=== PATIENT | female | born 1945 | race Caucasian/White ===

== ENCOUNTER 2020-06-11 20:08 | Inpatient (IN) ==
[2020-06-11] MEDS ORDERED: LACTATED RINGERS 1,000 ML IV ONE (20:20)
--- NOTE | 2020-06-11 20:24 | Emergency Department Note ---
Altered Mental Status HPI General Chief Complaint: Altered Mental Status Stated Complaint: decreased LOC Time Seen by Provider: 06/11/20 20:15 Source: patient Mode of arrival: wheelchair Limitations: no limitations History of Present Illness HPI Narrative: Narrative: This patient comes in from [facility] with fever and decreased level of consciousness. She is barely responsive to painful stimulation. Urine dip here shows large leukocytes and blood on dip. No history of cough or shortness of breath and her O2 sats in the mid 90s on room air. Related Data Home Medications Medication Instructions Recorded Confirmed aspirin [Olman Chewable Aspirin] 81 mg PO DAILY 08/23/16 08/23/16 acetaminophen 1,000 mg PO Q6-12HP PRN 06/11/20 06/11/20 bisacodyl 5 mg PO PRN PRN 06/11/20 06/11/20 bisacodyl 10 mg [place] PRN PRN 06/11/20 06/11/20 cetirizine 5 mg PO QDAY PRN 06/11/20 06/11/20 cholecalciferol (vitamin D3) 1,250 mcg PO DAILY 06/11/20 06/11/20 cyanocobalamin (vitamin B-12) 2,500 mcg PO QDAY 06/11/20 06/11/20 diclofenac sodium 1 % TOPICAL DAILY 06/11/20 06/11/20 donepezil 10 mg PO DAILY 06/11/20 06/11/20 famotidine 20 mg PO DAILY 06/11/20 06/11/20 fenofibrate nanocrystallized 145 mg PO DAILY 06/11/20 06/11/20 insulin glargine 17 unit SUBCUT BID 06/11/20 06/11/20 tramadol 50 mg PO TID PRN 06/11/20 06/11/20 Allergies Allergy/AdvReac Type Severity Reaction Status Date / Time codeine Allergy Unknown Unknown Verified 06/11/20 20:10 lactose Allergy Unknown Unknown Verified 06/11/20 20:12 metformin [From Avandamet] Allergy Unknown Unknown Verified 06/11/20 20:11 niacin Allergy Unknown Unknown Verified 06/11/20 20:10 pioglitazone Allergy Unknown Unknown Verified 06/11/20 20:11 Rosiglitazone Allergy Unknown Unknown Verified 06/11/20 20:11 [From Avandamet] shellfish derived Allergy Unknown Unknown Verified 06/11/20 20:13 atorvastatin [From Lipitor] AdvReac Severe Hives Verified 08/23/16 20:32 celecoxib [From Celebrex] AdvReac Severe Hives Verified 08/23/16 20:32 cephalexin AdvReac Severe Hives Verified 08/23/16 20:32 ciprofloxacin [From Cipro] AdvReac Severe Hives Verified 08/23/16 20:32 doxycycline AdvReac Severe Hives Verified 08/23/16 20:32 lisinopril AdvReac Severe Hives Verified 08/23/16 20:32 potassium AdvReac Severe Hives Verified 08/23/16 20:26 sulfamethoxazole AdvReac Severe Hives Verified 08/23/16 20:33 Paroxetine [From Paxil] AdvReac Intermediate Hives Verified 08/23/16 20:26 Penicillins AdvReac Intermediate Hives Verified 08/23/16 20:26 Sulfa (Sulfonamide AdvReac Intermediate Hives Verified 08/23/16 20:26 Antibiotics) clotrimazole AdvReac Unknown Unknown Verified 06/11/20 20:09 hyclate AdvReac Unknown Unknown Uncoded 08/23/16 20:47 mytussin AdvReac Unknown Unknown Uncoded 08/23/16 20:47 Review of Systems ROS ROS Narrative: Narrative: Limitations: ROS unobtainable due to patients medical condition [facility] Narrative Patient History Narrative: Narrative: Medical/Surgical/Family History All Active Problems (Updated 06/11/20 @ 22:54 by Brody Navas MD) Altered mental status (Acute) Sepsis (Acute) Urinary tract infection (Acute) Fracture of humerus, right, closed (Acute) Medical History (Updated 06/11/20 @ 22:54 by Brody Navas MD) Diabetes (Acute) Fracture of humerus, right, closed (Acute) GERD (gastroesophageal reflux disease) (Acute) Hypertension (Acute) Social History Smoking Status: Current every day smoker Exam Narrative Narrative: Narrative: General Limitations: no limitations Head Head: Present atraumatic, normocephalic and normal inspection ENT ENT: Present mucous membranes dry Chest Chest: Present normal inspection and symmetric chest wall rise Respiratory Respiratory: Present normal lung sounds bilaterally; Absent respiratory distress, rales/crackles and wheezes Cardiovascular Cardiovascular: Present regular rate, normal rhythm and normal heart sounds Adbominal Abdominal: Present soft; Absent distention and tenderness Course Vital Signs Vital signs: Vital Signs Temperature 101.7 F H 06/11/20 20:13 Pulse Rate 115 H 06/11/20 20:13 Respiratory Rate 16 06/11/20 20:13 Blood Pressure 117/77 06/11/20 20:13 Pulse Oximetry (%) 98 06/11/20 20:13 Temperature 100.0 F H 06/11/20 21:41 Pulse Rate 86 06/11/20 22:01 Respiratory Rate 19 06/11/20 22:27 Blood Pressure 157/136 06/11/20 22:01 Pulse Oximetry (%) 99 06/11/20 22:01 MDM MDM Narrative Medical decision making narrative: Narrative: Lab Data Lab results reviewed: Yes I reviewed the patient's lab results. Lab results narrative: Patient has evidence of urosepsis with a white count of 13,000 and fever. Patient will be admitted to PCU by the hospitalist. Result diagrams: 06/11/20 20:38 06/11/20 20:38 Labs: Lab Results 06/11/20 06/11/20 06/11/20 Range/Units 20:38 20:38 20:38 WBC 13.0 H (4.5-11.0) K/mcL RBC 4.70 (4.00-5.20) M/mcL Hgb 12.3 (12.0-15.0) g/dL Hct 39.5 (36.0-48.0) % MCV 84.0 (80.0-100.0) fL MCH 26.2 (26.0-34.0) pg MCHC 31.1 (31.0-36.0) g/dL RDW 13.2 (11.5-14.5) % Plt Count 529 H (140-440) K/mcL MPV 10.2 (7.4-10.4) fL Neut % (Auto) 79.3 H (38.0-78.0) % Lymph % (Auto) 14.1 L (15.0-49.0) % [place] % (Auto) 5.7 (1.0-12.0) % Eos % (Auto) 0.3 (0.0-7.0) % Baso % (Auto) 0.6 (0.0-2.0) % Lymph # (Auto) 1.83 (1.50-4.80) K/mcL [place] # (Auto) 0.74 (0.10-0.90) K/mcL Eos # (Auto) 0.04 (0.00-0.70) K/mcL Baso # (Auto) 0.08 (0.00-0.20) K/mcL Absolute Neutrophils 10.32 H (1.80-8.00) K/mcL VBG Lactic Acid (0.5-2.0) mmol/L Sodium 153 H (133-145) mmol/L Potassium 3.0 L (3.3-5.1) mmol/L Chloride 113 H (96-108) mmol/L Carbon Dioxide 26 (22-30) mmol/L Anion Gap 14.0 (8.0-16.0) BUN 35 H (8-23) mg/dL Creatinine 1.1 (0.6-1.1) mg/dL GFR Calculation 49 Glucose 176 H (70-105) mg/dL Calcium 12.1 H (8.6-10.4) mg/dL Total Bilirubin 0.4 (0.1-1.0) mg/dL AST 37 H (<32) U/L ALT 27 (<40) U/L Alkaline Phosphatase 76 (39-117) U/L Total Protein 7.1 (5.9-8.4) gm/dL Albumin 4.2 (3.2-5.2) gm/dL Globulin 2.9 (2.2-3.7) gm/dL Albumin/Globulin Ratio 1.4 (1.0-2.3) Urine Color Yellow Urine Appearance Turbid A (Clear) Urine pH 7.0 (5.0-9.0) Ur Specific [place] 1.024 (1.000-1.035) Urine Protein 100 A (Negative) mg/dL Urine Glucose (UA) Negative (Negative) mg/dL Urine Ketones Negative (Negative) mg/dL Urine Occult Blood 0.20 (Negative) mg/dL Urine Nitrate Negative (Negative) Urine Bilirubin Negative (Negative) mg/dL Urine Urobilinogen Negative mg/dL Ur Leukocyte Esterase 500 A (Negative) /ug Urine RBC 32 H (0-1) /hpf Urine WBC > 182 H (0-4) /hpf Ur Squamous Epith Cells 0 (0-4) /hpf Urine Bacteria Many A (0) /hpf Urine Mucus Many A (None) /hpf Ur Culture Indicated? yes 06/11/20 Range/Units 20:46 WBC (4.5-11.0) K/mcL RBC (4.00-5.20) M/mcL Hgb (12.0-15.0) g/dL Hct (36.0-48.0) % MCV (80.0-100.0) fL MCH (26.0-34.0) pg MCHC (31.0-36.0) g/dL RDW (11.5-14.5) % Plt Count (140-440) K/mcL MPV (7.4-10.4) fL Neut % (Auto) (38.0-78.0) % Lymph % (Auto) (15.0-49.0) % [place] % (Auto) (1.0-12.0) % Eos % (Auto) (0.0-7.0) % Baso % (Auto) (0.0-2.0) % Lymph # (Auto) (1.50-4.80) K/mcL [place] # (Auto) (0.10-0.90) K/mcL Eos # (Auto) (0.00-0.70) K/mcL Baso # (Auto) (0.00-0.20) K/mcL Absolute Neutrophils (1.80-8.00) K/mcL VBG Lactic Acid 1.2 (0.5-2.0) mmol/L Sodium (133-145) mmol/L Potassium (3.3-5.1) mmol/L Chloride (96-108) mmol/L Carbon Dioxide (22-30) mmol/L Anion Gap (8.0-16.0) BUN (8-23) mg/dL Creatinine (0.6-1.1) mg/dL GFR Calculation Glucose (70-105) mg/dL Calcium (8.6-10.4) mg/dL Total Bilirubin (0.1-1.0) mg/dL AST (<32) U/L ALT (<40) U/L Alkaline Phosphatase (39-117) U/L Total Protein (5.9-8.4) gm/dL Albumin (3.2-5.2) gm/dL Globulin (2.2-3.7) gm/dL Albumin/Globulin Ratio (1.0-2.3) Urine Color Urine Appearance (Clear) Urine pH (5.0-9.0) Ur Specific [place] (1.000-1.035) Urine Protein (Negative) mg/dL Urine Glucose (UA) (Negative) mg/dL Urine Ketones (Negative) mg/dL Urine Occult Blood (Negative) mg/dL Urine Nitrate (Negative) Urine Bilirubin (Negative) mg/dL Urine Urobilinogen mg/dL Ur Leukocyte Esterase (Negative) /ug Urine RBC (0-1) /hpf Urine WBC (0-4) /hpf Ur Squamous Epith Cells (0-4) /hpf Urine Bacteria (0) /hpf Urine Mucus (None) /hpf Ur Culture Indicated? Radiology Data Radiology results reviewed: Yes I reviewed the patient's radiology results. Radiology results narrative: Chest x-ray was unremarkable Discharge Plan Patient/Caregiver Discharge Instructions Pt seen by [employer]ADER/PA only: No Clinical Impression: Altered mental status, Sepsis, Urinary tract infection Patient Disposition: Xfer As Inpt ([facility]) Follow up with: Jak Justin MD [Primary Care Provider] - Prescriptions: No Action losartan [Cozaar] 50 MG Tablet 50 mg PO DAILY RF: 0 methocarbamol 500 MG Tablet 500 mg PO TIDP PRN (Reason: Muscle Spasm) RF: 0 metformin 500 MG Tablet 1,000 mg PO BIDCC RF: 0 glipizide [Glucotrol] 10 MG Tablet 10 mg PO BID RF: 0 omeprazole 20 MG Capsule 20 mg PO ACB RF: 0 aspirin [Olman Chewable Aspirin] 81 MG Tab.Chew 81 mg PO DAILY RF: 0 hydrochlorothiazide 25 MG Tablet 25 mg PO DAILY RF: 0 Phenazopyridine 200 mg PO RF: 0 tramadol 50 MG Tablet 50 mg PO Q4-6HP PRN (Reason: Pain) Qty: 10 RF: 0
[2020-06-11 21:29] LABS: Basophils # (Auto) 0.08 K/mcL (0.00-0.20); Basophils % (Auto) 0.6 % (0.0-2.0); Eosinophils # (Auto) 0.04 K/mcL (0.00-0.70); Eosinophils % (Auto) 0.3 % (0.0-7.0); Hematocrit 39.5 % (36.0-48.0); Hemoglobin 12.3 g/dL (12.0-15.0); Lymphocytes # (Auto) 1.83 K/mcL (1.50-4.80); Lymphocytes % (Auto) 14.1 % (15.0-49.0); Mean Corpuscular HGB Conc 31.1 g/dL (31.0-36.0); Mean Platelet Volume 10.2 fL (7.4-10.4); Monocytes # (Auto) 0.74 K/mcL (0.10-0.90); Monocytes % (Auto) 5.7 % (1.0-12.0); Neutrophils % (Auto) 79.3 % (38.0-78.0); Platelet Count 529 K/mcL (140-440); Red Cell Distribution Width 13.2 % (11.5-14.5)
[2020-06-11 21:42] LABS: Appearance,Urine TURBID (Clear); Bacteria,Urine MANY /hpf (0); Bilirubin,Urine Negative (Negative); Color,Urine Yellow; Culture Indicated,Urine yes; Glucose,Urine (UA) Negative (Negative); Ketones,Urine Negative (Negative); Leukocyte Esterase,Urine 500 /ug (Negative); Mucus,Urine MANY /hpf; Nitrate,Urine Negative (Negative); Protein,Urine 100 mg/dL (Negative); Specific Gravity,Urine 1.024 (1.000-1.035); Urine RBC 32 /hpf (0-1); Urine Squamous Epithelial Cell 0 /hpf (0-4); Urine WBC > 182 /hpf (0-4); Urobilinogen,Urine Negative
[2020-06-11 22:00] LABS: ALT/SGPT 27 U/L (<40); AST/SGOT 37 U/L (<32); Albumin 4.2 gm/dL (3.2-5.2); Albumin/Globulin Ratio 1.4 (1.0-2.3); Alkaline Phosphatase 76 U/L (39-117); Bilirubin,Total 0.4 mg/dL (0.1-1.0); Blood Urea Nitrogen 35 mg/dL (8-23); Calcium 12.1 mg/dL (8.6-10.4); Carbon Dioxide 26 mmol/L (22-30); Chloride 113 mmol/L (96-108); Globulin 2.9 gm/dL (2.2-3.7); Glomerular Filtration Rate 49; Glucose 176 mg/dL (70-105)
[2020-06-11] MEDS ORDERED: ONDANSETRON 4 MG/2 ML VIAL IV PRN (23:19)
[2020-06-11] MEDS ORDERED: LACTULOSE 20 GM/30 ML ORAL.SOL PO PRN (23:19)
[2020-06-11] MEDS ORDERED: DEXTROSE 50% 50 ML VIAL IV PRN (23:25)
[2020-06-11] MEDS ORDERED: 0.9 % SODIUM CHLORIDE 1,000 ML IV SCH (23:30)
[2020-06-11] MEDS ORDERED: IMIPENEM/CILASTATIN SODIUM 250 MG in 0.9 % SODIUM CHLORIDE 100 ML IV SCH (23:30)
[2020-06-11] MEDS ORDERED: ACETAMINOPHEN 325 MG SUPP.RECT PR PRN (23:32)
--- NOTE | 2020-06-11 23:46 | Internal Med History&Physical ---
HPI History of Present Illness Patient information: Note initiated : 06/11/20 at 11:34 pm Service Date, if different from initiated Date: [] Patient: Trevon Waller a 74 y/o F admitted on for decreased LOC. Chief Complaint: [] History of present illness: Ms. Waller is a 74 year old F with a past medical history of diabetes and dementia who was sent to the ER from [facility] due to fever and decreased consciousness. Patient has not answer questions and all medical history is obtained from his chart. In the ER, urinalysis was compatible with UTI. 1 L normal saline was given. CT of the head and chest was performed and results pending. Patient is allergic to multiple antibiotics. When I saw this patient in the ER, patient could open eyes when I shook him but he did not answer any question. Review of Systems ROS unobtainable: due to mental status PFSH PFSH All Active Problems Altered mental status (Acute) Sepsis (Acute) Urinary tract infection (Acute) Fracture of humerus, right, closed (Acute) Medical History Diabetes (Acute) Fracture of humerus, right, closed (Acute) GERD (gastroesophageal reflux disease) (Acute) Hypertension (Acute) Social History smoking status: Current every day smoker MEDS/ALLERGIES Home Medications and Allergies Home Medications Medication Instructions Recorded Confirmed Type aspirin [Olman Chewable Aspirin] 81 mg PO DAILY 08/23/16 06/11/20 History acetaminophen 1,000 mg PO Q6-12HP PRN 06/11/20 06/11/20 History bisacodyl 5 mg PO PRN PRN 06/11/20 06/11/20 History bisacodyl 10 mg [place] PRN PRN 06/11/20 06/11/20 History cetirizine 5 mg PO QDAY PRN 06/11/20 06/11/20 History cholecalciferol (vitamin D3) 1,250 mcg PO DAILY 06/11/20 06/11/20 History cyanocobalamin (vitamin B-12) 2,500 mcg PO QDAY 06/11/20 06/11/20 History diclofenac sodium 1 % TOPICAL DAILY 06/11/20 06/11/20 History donepezil 10 mg PO DAILY 06/11/20 06/11/20 History famotidine 20 mg PO DAILY 06/11/20 06/11/20 History fenofibrate nanocrystallized 145 mg PO DAILY 06/11/20 06/11/20 History insulin glargine 17 unit SUBCUT BID 06/11/20 06/11/20 History tramadol 50 mg PO TID PRN 06/11/20 06/11/20 History Allergies Allergy/AdvReac Type Severity Reaction Status Date / Time codeine Allergy Unknown Unknown Verified 06/11/20 20:10 lactose Allergy Unknown Unknown Verified 06/11/20 20:12 metformin [From Avandamet] Allergy Unknown Unknown Verified 06/11/20 20:11 niacin Allergy Unknown Unknown Verified 06/11/20 20:10 pioglitazone Allergy Unknown Unknown Verified 06/11/20 20:11 Rosiglitazone Allergy Unknown Unknown Verified 06/11/20 20:11 [From Avandamet] shellfish derived Allergy Unknown Unknown Verified 06/11/20 20:13 atorvastatin [From Lipitor] AdvReac Severe Hives Verified 08/23/16 20:32 celecoxib [From Celebrex] AdvReac Severe Hives Verified 08/23/16 20:32 cephalexin AdvReac Severe Hives Verified 08/23/16 20:32 ciprofloxacin [From Cipro] AdvReac Severe Hives Verified 08/23/16 20:32 doxycycline AdvReac Severe Hives Verified 08/23/16 20:32 lisinopril AdvReac Severe Hives Verified 08/23/16 20:32 potassium AdvReac Severe Hives Verified 08/23/16 20:26 sulfamethoxazole AdvReac Severe Hives Verified 08/23/16 20:33 Paroxetine [From Paxil] AdvReac Intermediate Hives Verified 08/23/16 20:26 Penicillins AdvReac Intermediate Hives Verified 08/23/16 20:26 Sulfa (Sulfonamide AdvReac Intermediate Hives Verified 08/23/16 20:26 Antibiotics) clotrimazole AdvReac Unknown Unknown Verified 06/11/20 20:09 hyclate AdvReac Unknown Unknown Uncoded 08/23/16 20:47 mytussin AdvReac Unknown Unknown Uncoded 08/23/16 20:47 EXAM Constitutional Vitals: Temp Pulse Resp BP Pulse Ox 100.0 F H 86 19 157/136 99 06/11/20 21:41 06/11/20 22:01 06/11/20 22:27 06/11/20 22:01 06/11/20 22:01 Additional findings Additional findings: General -opens eyes when shaking him. but does not answer questions Eyes -no conjunctival injection ENT no rhinorrhea, no noticeable or palpable swelling, no redness or rash around throat or on face Neck no JVD, no thyromegaly Respiratory: Lungs -clear, no wheezing or crackles. Cardiovascular - RRR no m/r/g, GI - Normal bowel sounds, no distended, soft. Extremeties - No edema, cyanosis or clubbing Hemo/lymphatic/immune no lymphadenopathy Neurological not able to complete due to mental status. Psychiatry not able to complete due to mental status DATA Data Completed and Pending Labs: Labs from last 24 hours 06/11/20 06/11/20 06/11/20 22:08 20:46 20:38 WBC RBC Hgb Hct MCV MCH MCHC RDW Plt Count MPV Neut % (Auto) Lymph % (Auto) [place] % (Auto) Eos % (Auto) Baso % (Auto) Lymph # (Auto) [place] # (Auto) Eos # (Auto) Baso # (Auto) Absolute Neutrophils VBG Lactic Acid 1.2 Sodium Potassium Chloride Carbon Dioxide Anion Gap BUN Creatinine GFR Calculation Glucose Calcium Total Bilirubin AST ALT Alkaline Phosphatase Total Protein Albumin Globulin Albumin/Globulin Ratio Urine Color Yellow Urine Appearance Turbid A Urine pH 7.0 Ur Specific [place] 1.024 Urine Protein 100 A Urine Glucose (UA) Negative Urine Ketones Negative Urine Occult Blood 0.20 Urine Nitrate Negative Urine Bilirubin Negative Urine Urobilinogen Negative Ur Leukocyte Esterase 500 A Urine RBC 32 H Urine WBC > 182 H Ur Squamous Epith Cells 0 Urine Bacteria Many A Urine Mucus Many A Ur Culture Indicated? yes SARS-CoV-2 (PCR) Pending 06/11/20 06/11/20 20:38 20:38 WBC 13.0 H RBC 4.70 Hgb 12.3 Hct 39.5 MCV 84.0 MCH 26.2 MCHC 31.1 RDW 13.2 Plt Count 529 H MPV 10.2 Neut % (Auto) 79.3 H Lymph % (Auto) 14.1 L [place] % (Auto) 5.7 Eos % (Auto) 0.3 Baso % (Auto) 0.6 Lymph # (Auto) 1.83 [place] # (Auto) 0.74 Eos # (Auto) 0.04 Baso # (Auto) 0.08 Absolute Neutrophils 10.32 H VBG Lactic Acid Sodium 153 H Potassium 3.0 L Chloride 113 H Carbon Dioxide 26 Anion Gap 14.0 BUN 35 H Creatinine 1.1 GFR Calculation 49 Glucose 176 H Calcium 12.1 H Total Bilirubin 0.4 AST 37 H ALT 27 Alkaline Phosphatase 76 Total Protein 7.1 Albumin 4.2 Globulin 2.9 Albumin/Globulin Ratio 1.4 Urine Color Urine Appearance Urine pH Ur Specific [place] Urine Protein Urine Glucose (UA) Urine Ketones Urine Occult Blood Urine Nitrate Urine Bilirubin Urine Urobilinogen Ur Leukocyte Esterase Urine RBC Urine WBC Ur Squamous Epith Cells Urine Bacteria Urine Mucus Ur Culture Indicated? SARS-CoV-2 (PCR) A/P Narrative A/P Narrative: 1. AMS Etiology unknown. Could be due to sepsis or others. CT of the head pending Neuro check every 4 hours 2. Sepsis 2nd to UTI Blood culture Urine culture COVID-19 pending MRSA screen 1 L normal saline was given in the ER Continue IV fluid Lactic acid 2.1 3. UTI Allergic to multiple antibiotics Imipenem 400mg IV Q6hrs 4. Hematuria Repeat CBC in morning Repeat a urinalysis in 2 to 3 days 5. Hypernatremia IV normal saline BMP every 8 hours 6. Electrolytes derangement Replacement Repeat electrolytes in the morning 7. Dehydration IV fluid 8. DM type 2 Patient is on Lantus 17 units twice daily I will order Lantus 15 units daily because patient is on n.p.o. now Insulin sliding scale 9. Dementia Home medication is on hold 10. DVT prophylaxis: Lovenox 11. CODE STATUS: Pending Time Spent With Patient Time: Total time spent is greater than 50% in coordination of care (as documented) at patient's floor/unit and/or counseling patient:
[2020-06-12] MEDS ORDERED: INSULIN LISPRO 1 UNIT/0.01 ML UNIT SQ SCH
[2020-06-12] MEDS ORDERED: ACETAMINOPHEN 325 MG SUPP.RECT PR PRN (00:07)
[2020-06-12] MEDS ORDERED: DEXTROSE 50% 50 ML VIAL IV PRN (00:07)
[2020-06-12] MEDS ORDERED: LACTULOSE 20 GM/30 ML ORAL.SOL PO PRN (00:07)
[2020-06-12] MEDS ORDERED: ONDANSETRON 4 MG/2 ML VIAL IV PRN (00:07)
[2020-06-12] MEDS ORDERED: MEROPENEM 1 GM in 0.9 % SODIUM CHLORIDE 50 ML IV ONE (00:55)
[2020-06-12 01:14] LABS: Blood Urea Nitrogen 33 mg/dL (8-23); Calcium 11.4 mg/dL (8.6-10.4); Carbon Dioxide 24 mmol/L (22-30); Chloride 112 mmol/L (96-108); Glomerular Filtration Rate 73; Glucose 132 mg/dL (70-105)
[2020-06-12] MEDS: 0.9 % SODIUM CHLORIDE 1,000 ML IV SCH ×2 (01:42→12:53)
[2020-06-12] MEDS ORDERED: IMIPENEM/CILASTATIN SODIUM 250 MG in 0.9 % SODIUM CHLORIDE 100 ML IV SCH (05:30)
[2020-06-12] MEDS ORDERED: 0.9 % SODIUM CHLORIDE 10 ML SYRINGE IV SCH (06:00)
[2020-06-12] MEDS: 0.9 % SODIUM CHLORIDE 10 ML SYRINGE IV SCH ×3 (06:00→22:23)
[2020-06-12] MEDS: INSULIN LISPRO 1 UNIT/0.01 ML UNIT SQ SCH ×3 (06:00→16:59)
[2020-06-12 06:39] LABS: Basophils # (Auto) 0.08 K/mcL (0.00-0.20); Basophils % (Auto) 0.6 % (0.0-2.0); Eosinophils # (Auto) 0.12 K/mcL (0.00-0.70); Eosinophils % (Auto) 0.9 % (0.0-7.0); Hematocrit 38.8 % (36.0-48.0); Lymphocytes # (Auto) 2.55 K/mcL (1.50-4.80); Lymphocytes % (Auto) 19.8 % (15.0-49.0); Mean Cell Volume 85.3 fL (80.0-100.0); Mean Corpuscular HGB Conc 30.9 g/dL (31.0-36.0); Mean Platelet Volume 10.6 fL (7.4-10.4); Monocytes # (Auto) 0.82 K/mcL (0.10-0.90); Monocytes % (Auto) 6.4 % (1.0-12.0); Neutrophils % (Auto) 72.3 % (38.0-78.0); Platelet Count 466 K/mcL (140-440); RBC 4.55 M/mcL (4.00-5.20); Red Cell Distribution Width 13.2 % (11.5-14.5); WBC 12.9 K/mcL (4.5-11.0)
[2020-06-12 08:26] LABS: proBNP 807.2 pg/mL (<125.0)
[2020-06-12 08:45] LABS: Phosphorous 2.1 mg/dL (2.5-4.5)
[2020-06-12 08:50] LABS: ALT/SGPT 26 U/L (<40); AST/SGOT 36 U/L (<32); Albumin 3.9 gm/dL (3.2-5.2); Albumin/Globulin Ratio 1.3 (1.0-2.3); Alkaline Phosphatase 69 U/L (39-117); Bilirubin,Total 0.4 mg/dL (0.1-1.0); Blood Urea Nitrogen 31 mg/dL (8-23); Calcium 11.3 mg/dL (8.6-10.4); Carbon Dioxide 23 mmol/L (22-30); Chloride 114 mmol/L (96-108); Globulin 2.9 gm/dL (2.2-3.7); Glomerular Filtration Rate 73; Glucose 110 mg/dL (70-105)
[2020-06-12] MEDS ORDERED: INSULIN GLARGINE, HUMAN 1 UNIT/0.01 ML SQ SCH (09:00)
[2020-06-12] MEDS ORDERED: ENOXAPARIN 40 MG/0.4 ML SYRINGE SQ SCH (09:00)
[2020-06-12] MEDS ORDERED: DOCUSATE SODIUM 100 MG CAPSULE PO SCH (09:00)
[2020-06-12] MEDS ORDERED: MUPIROCIN OINT 2% 22GM NARES SCH (09:00)
[2020-06-12] MEDS: MEROPENEM 1 GM in 0.9 % SODIUM CHLORIDE 50 ML IV SCH ×3 (09:00→22:22)
--- NOTE | 2020-06-12 09:37 | XRay Report ---
HISTORY: Fever, decreased level consciousness FINDINGS: Lungs are clear and well expanded. The heart size and pulmonary vasculature are normal. No pleural effusion. Aorta is tortuous. Arthritis is present in the shoulders. IMPRESSION: No acute abnormality Interpreted and Authenticated by: Maco Liriano 06/12/20
--- NOTE | 2020-06-12 09:37 | Cat Scan Report ---
History: Decreased level of consciousness TECHNIQUE: The brain was imaged without contrast at 2.5 mm intervals. Sagittal and coronal reformats were created. Some of the images have been repeated on account of motion artifact. Radiation exposure was limited using dose reduction technology. 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 Posteriorly and superiorly in the right occipital lobe there is a 1.5 x 2 cm infarct. In the centrum semiovale is an 8 x 9 mm infarct. In the central portion of the right centrum semiovale 9 x 16 mm infarct is present. This extends inferiorly and involves the top of the right putamen. Is also a small cortical infarct along the inferior lateral border of the left frontal lobe which blends in with the sylvian fissure. Although the these are not new, they were not present on the prior head CT done on 11/22/17. There is a stable old lacunar infarct lateral to the head of the right caudate nucleus which measures 8 x 9 mm. No acute infarct is detected. There is no hemorrhage or mass effect. Patient has mild to moderate generalized cerebral atrophy. The ventricles are normal in size allowing for the atrophy. No abnormal extra-axial fluid collection is present. IMPRESSION: Multiple old infarcts No acute abnormality is detected Interpreted and Authenticated by: Maco Liriano 06/12/20
[2020-06-12] MEDS: DOCUSATE SODIUM 100 MG CAPSULE PO SCH ×2 (09:43→21:32)
[2020-06-12] MEDS ORDERED: diphenhydrAMINE 25 MG CAPSULE PO ONE (09:44)
[2020-06-12] MEDS ORDERED: POTASSIUM CHLORIDE 10 MEQ TABLET PO ONE (09:45)
[2020-06-12] MEDS: ENOXAPARIN 40 MG/0.4 ML SYRINGE SQ SCH (09:52)
[2020-06-12] MEDS: INSULIN GLARGINE, HUMAN 1 UNIT/0.01 ML SQ SCH (09:54)
[2020-06-12] MEDS ORDERED: POTASSIUM CHLORIDE 20 MEQ TABLET PO ONE (11:51)
[2020-06-12] MEDS ORDERED: POTASSIUM CHLORIDE 40 MEQ in DEXTROSE 5% IN WATER 500 ML IV ONE (11:51)
[2020-06-12] MEDS ORDERED: DEXTROSE 5%-1/2NS W/20MEQ KCL 1,000 ML IV SCH (15:15)
[2020-06-12] MEDS ORDERED: POTASSIUM PHOSPHATE 20 MEQ in DEXTROSE 5% IN WATER 250 ML IV ONE (15:16)
--- NOTE | 2020-06-12 15:19 | Internal Med Progress Note ---
SUBJECTIVE Subjective Patient information: Note initiated : 06/12/20 at 3:17 pm Service Date, if different from initiated Date: [] Patient: Trevon Waller a 74 y/o F admitted on 06/11/20 for decreased LOC. Chief Complaint: [] Ms. Waller is a 74 year old F with a past medical history of diabetes and dementia who was sent to the ER from [facility] due to fever and decreased consciousness. Patient has not answer questions and all medical history is obtained from his chart. In the ER, urinalysis was compatible with UTI. 1 L normal saline was given. CT of the head and chest was performed and results pending. Patient is allergic to multiple antibiotics. When I saw this patient in the ER, patient could open eyes when I shook him but he did not answer any question. 06/12 Patient still does not answer questions but she can open eyes. Vital signs are stable and acceptable Patient is on room air with good oxygen saturation Blood sugar around 100 White blood cells 12.9, sodium of 152, potassium of 2.8, phosphorus 2.1 CT of the head showed Multiple old infarcts will start D5-1/2NS-20mEq KCl 75ml/hr Spoke to Joann Rasmussen ([phone]) (friend, POA), who stated that pt could answer questions and talk on 05/26. Review of Systems ROS unobtainable: due to mental status Constitutional Vitals: Vital Signs Temp Pulse Resp BP Pulse Ox 98.9 F 83 17 114/62 95 06/12/20 11:01 06/12/20 06:05 06/12/20 11:01 06/12/20 11:01 06/12/20 11:01 Period Temp Pulse Resp BP Sys/Marte Pulse Ox Last 24 Hr 97.6 F-101.7 F 68-116 13-28 114-187/57-157 92-99 Intake and Output 06/12/20 06/12/20 06/12/20 05:59 13:59 21:59 Intake Total 1000 1100 50 Balance 1000 1100 50 Weight 70.817 kg Intake & Output: Intake & Output 06/12/20 06/12/20 06/12/20 05:59 13:59 21:59 Intake Total 1000 1100 50 Balance 1000 1100 50 Weight 70.817 kg Intake: IV 1000 1100 50 Sodium Chloride 0.9% 1,000 ml @ 1000 100 mls/hr IV .Q10H [facility] Rx#: [id number] Lactated Ringers 1,000 ml @ 1000 Wide Open IV BOLUS ONE Rx#: [id number] Merrem 1 gm In Sodium Chloride 100 50 0.9% 50 ml @ 100 mls/hr IV Q8H [facility] Rx#:[id number] Additional findings Additional findings: General -opens eyes when shaking him. but does not answer questions Eyes -no conjunctival injection ENT no rhinorrhea, no noticeable or palpable swelling, no redness or rash around throat or on face Neck no JVD, no thyromegaly Respiratory: Lungs -clear, no wheezing or crackles. Cardiovascular - RRR no m/r/g, GI - Normal bowel sounds, no distended, soft. Extremeties - No edema, cyanosis or clubbing Hemo/lymphatic/immune no lymphadenopathy Neurological not able to complete due to mental status. Psychiatry not able to complete due to mental status OBJ DATA Labs CBC & Chem 7: 06/12/20 05:20 06/12/20 05:20 Labs: Abnormal Lab Results 06/12/20 06/12/20 06/12/20 05:20 05:20 05:20 WBC 12.9 H MCHC 30.9 L Plt Count 466 H MPV 10.6 H Neut % (Auto) Lymph % (Auto) Absolute Neutrophils 9.34 H Sodium 152 H Potassium 2.8 L* Chloride 114 H BUN 31 H Glucose 110 H Calcium 11.3 H Phosphorus 2.1 L AST 36 H Troponin T 0.06 H* NT-Pro-B Natriuret Pep 807.2 H Urine Appearance Urine Protein Ur Leukocyte Esterase Urine RBC Urine WBC Urine Bacteria Urine Mucus 06/11/20 06/11/20 06/11/20 23:44 23:42 20:38 WBC MCHC Plt Count MPV Neut % (Auto) Lymph % (Auto) Absolute Neutrophils Sodium 149 H Potassium 2.9 L* Chloride 112 H BUN 33 H Glucose 132 H Calcium 11.4 H Phosphorus AST Troponin T 0.06 H* NT-Pro-B Natriuret Pep Urine Appearance Turbid A Urine Protein 100 A Ur Leukocyte Esterase 500 A Urine RBC 32 H Urine WBC > 182 H Urine Bacteria Many A Urine Mucus Many A 06/11/20 06/11/20 20:38 20:38 WBC 13.0 H MCHC Plt Count 529 H MPV Neut % (Auto) 79.3 H Lymph % (Auto) 14.1 L Absolute Neutrophils 10.32 H Sodium 153 H Potassium 3.0 L Chloride 113 H BUN 35 H Glucose 176 H Calcium 12.1 H Phosphorus AST 37 H Troponin T NT-Pro-B Natriuret Pep Urine Appearance Urine Protein Ur Leukocyte Esterase Urine RBC Urine WBC Urine Bacteria Urine Mucus Meds: Medications Acetaminophen (Tylenol) 325 mg ID Q6HP PRN; Protocol PRN Reason: Fever >101 Dextrose (Dextrose 50%) 0 ml IV UD PRN PRN Reason: Hypoglycemia Diagnostic Test (Pha) (Accu-Chek) 1 each FS Q6 [facility] Last Admin: 06/12/20 12:00 Dose: 1 each Documented by: Docusate Sodium (Colace) 100 mg PO BID [facility] Last Admin: 06/12/20 09:43 Dose: Not Given Documented by: Enoxaparin Sodium (Lovenox) 40 mg SQ DAILY [facility] Last Admin: 06/12/20 09:52 Dose: 40 mg Documented by: Hydralazine HCl (Apresoline) 10 mg IV Q4-6HP PRN PRN Reason: Hypertension Meropenem 1 gm/ Sodium (Chloride) 50 mls @ 100 mls/hr IV Q8H [facility]; Protocol Last Infusion: 06/12/20 14:43 Dose: Infused Documented by: Potassium Chloride 40 meq/ (Dextrose) 520 mls @ 130 mls/hr IV ONCE ONE Stop: 06/12/20 15:50 Last Admin: 06/12/20 12:55 Dose: 130 mls/hr Documented by: Potassium Chloride/Dextrose/Sod Cl (Dextrose 5%-1/2ns W/20meq Kcl) 1,000 mls @ 75 mls/hr IV .[id number] [facility] Insulin Glargine (Lantus) 15 unit SQ DAILY [facility] Last Admin: 06/12/20 09:54 Dose: 15 unit Documented by: Insulin Human Lispro (Humalog) 0 unit SQ Q6 [facility]; Protocol Last Admin: 06/12/20 12:00 Dose: Not Given Documented by: Lactulose (Cephulac) 10 gm PO DAILYP PRN PRN Reason: Constipation Ondansetron HCl (Zofran) 4 mg IV Q4HP PRN; Protocol PRN Reason: Nausea And Vomiting Sodium Chloride (Saline Flush) 10 ml IV Q8 [facility] Last Admin: 06/12/20 14:43 Dose: 10 ml Documented by: A/P Narrative A/P Narrative: 1. AMS Etiology unknown. Could be due to sepsis, hypernatremia, multiple infarcts, or others CT of the head no acute change Neuro check every 4 hours 2. Sepsis 2nd to UTI Blood culture no growth so far Urine culture pending COVID-19 pending MRSA screen negative 1 L normal saline was given in the ER Continue IV fluid Meropenem 1 g every 8 hours 3. UTI Allergic to multiple antibiotics Meropenem 1 g q 8 hours 4. Hematuria Repeat CBC in morning Repeat a urinalysis in 2 to 3 days 5. Hypernatremia D5 half-normal potassium chloride 75 cc/h BMP every 8 hours 6. Electrolytes derangement Replacement Repeat electrolytes in the morning 7. Dehydration IV fluid 8. DM type 2 Patient is on Lantus 17 units twice daily I will order Lantus 15 units daily because patient is on n.p.o. now Insulin sliding scale 9. Dementia CT of the head showed multiple old infarcts Home medication is on hold 10. DVT prophylaxis: Lovenox Time Spent With Patient Time: Total time spent is greater than 50% in coordination of care (as documented) at patient's floor/unit and/or counseling patient: QUALITY VTE Deep Vein Thrombosis/Pulmonary Embolism Present on Admission: No
--- NOTE | 2020-06-12 15:24 | Event Note ---
Event Note Event Note: Advanced Care Planning Documents: pt's decisional Capacity: No POLST form completed: Not. I called Ms Trevon Waller's friend Joann Rasmussen ([phone]) (friend, POA) and explained CPR and intubation in detail to her who declined CPR and intubation. Pt's chart from 2016 also showed DNR.
[2020-06-12] MEDS: DEXTROSE 5%-1/2NS 1,000 ML IV SCH (17:01)
[2020-06-12 18:43] LABS: Blood Urea Nitrogen 25 mg/dL (8-23); Calcium 10.7 mg/dL (8.6-10.4); Carbon Dioxide 23 mmol/L (22-30); Chloride 118 mmol/L (96-108); Glomerular Filtration Rate 73; Glucose 159 mg/dL (70-105)
[2020-06-12 19:07] LABS: Blood Urea Nitrogen 26 mg/dL (8-23); Carbon Dioxide 23 mmol/L (22-30); Chloride 117 mmol/L (96-108); Glomerular Filtration Rate 73; Glucose 155 mg/dL (70-105)
[2020-06-12 19:27] LABS: Amphetamine Screen,Urine None detected; Barbiturate Screen,Urine Suspect positive; Benzodiazepines Screen,Urine None detected; Cannabinoid Screen,Urine None detected; Cocaine Screen,Urine None detected; Opiate Screen,Urine None detected; Oxycodone, Urine Screen None detected; Phencyclidine Screen,Urine None detected
[2020-06-13] MEDS: INSULIN LISPRO 1 UNIT/0.01 ML UNIT SQ SCH ×4 (00:05→17:52)
[2020-06-13] MEDS: hydrALAZINE 20 MG/ML VIAL IV PRN ×2 (01:25→09:37)
[2020-06-13 01:28] LABS: Blood Urea Nitrogen 23 mg/dL (8-23); Calcium 10.6 mg/dL (8.6-10.4); Carbon Dioxide 22 mmol/L (22-30); Chloride 119 mmol/L (96-108); Glomerular Filtration Rate 73; Glucose 124 mg/dL (70-105)
[2020-06-13] MEDS: DEXTROSE 5%-1/2NS 1,000 ML IV SCH ×3 (05:35→19:42)
[2020-06-13] MEDS: MEROPENEM 1 GM in 0.9 % SODIUM CHLORIDE 50 ML IV SCH (05:57)
[2020-06-13 06:06] LABS: Basophils # (Auto) 0.08 K/mcL (0.00-0.20); Basophils % (Auto) 0.7 % (0.0-2.0); Eosinophils # (Auto) 0.34 K/mcL (0.00-0.70); Eosinophils % (Auto) 3.1 % (0.0-7.0); Hematocrit 34.4 % (36.0-48.0); Hemoglobin 10.5 g/dL (12.0-15.0); Lymphocytes # (Auto) 2.57 K/mcL (1.50-4.80); Lymphocytes % (Auto) 23.6 % (15.0-49.0); Mean Cell Volume 87.1 fL (80.0-100.0); Mean Corpuscular HGB Conc 30.5 g/dL (31.0-36.0); Mean Platelet Volume 10.7 fL (7.4-10.4); Monocytes # (Auto) 0.58 K/mcL (0.10-0.90); Monocytes % (Auto) 5.3 % (1.0-12.0); Neutrophils % (Auto) 67.3 % (38.0-78.0); Platelet Count 385 K/mcL (140-440); RBC 3.95 M/mcL (4.00-5.20); Red Cell Distribution Width 13.2 % (11.5-14.5); WBC 10.9 K/mcL (4.5-11.0)
[2020-06-13 06:16] LABS: ALT/SGPT 29 U/L (<40); AST/SGOT 44 U/L (<32); Albumin 3.2 gm/dL (3.2-5.2); Albumin/Globulin Ratio 1.2 (1.0-2.3); Alkaline Phosphatase 60 U/L (39-117); Bilirubin,Total 0.3 mg/dL (0.1-1.0); Blood Urea Nitrogen 21 mg/dL (8-23); Calcium 10.5 mg/dL (8.6-10.4); Carbon Dioxide 22 mmol/L (22-30); Chloride 116 mmol/L (96-108); Globulin 2.6 gm/dL (2.2-3.7); Glomerular Filtration Rate 85; Glucose 163 mg/dL (70-105)
[2020-06-13] MEDS: 0.9 % SODIUM CHLORIDE 10 ML SYRINGE IV SCH ×3 (09:26→21:47)
[2020-06-13] MEDS: INSULIN GLARGINE, HUMAN 1 UNIT/0.01 ML SQ SCH (09:36)
[2020-06-13] MEDS: ENOXAPARIN 40 MG/0.4 ML SYRINGE SQ SCH (09:37)
[2020-06-13] MEDS: DOCUSATE SODIUM 100 MG CAPSULE PO SCH ×2 (09:52→21:31)
[2020-06-13] MEDS ORDERED: VANCOMYCIN PER PHARMACY IV SCH (13:00)
[2020-06-13] MEDS ORDERED: diphenhydrAMINE 50 MG/ML VIAL IV ONE (13:15)
[2020-06-13] MEDS ORDERED: IOPAMIDOL 100 ML BOTTLE IV ONE (14:07)
--- NOTE | 2020-06-13 14:17 | Internal Med Progress Note ---
SUBJECTIVE Subjective Patient information: Note initiated : 06/13/20 at 2:07 pm Service Date, if different from initiated Date: [] Patient: Trevon Waller a 74 y/o F admitted on 06/11/20 for decreased LOC. Chief Complaint: []. Ms. Waller is a 74 year old F with a past medical history of diabetes and dementia who was sent to the ER from [facility] due to fever and decreased consciousness. Patient has not answer questions and all medical history is obtained from his chart. In the ER, urinalysis was compatible with UTI. 1 L normal saline was given. CT of the head and chest was performed and results pending. Patient is allergic to multiple antibiotics. When I saw this patient in the ER, patient could open eyes when I shook him but he did not answer any question. 06/12 Patient still does not answer questions but she can open eyes. Vital signs are stable and acceptable Patient is on room air with good oxygen saturation Blood sugar around 100 White blood cells 12.9, sodium of 152, potassium of 2.8, phosphorus 2.1 CT of the head showed Multiple old infarcts will start D5-1/2NS-20mEq KCl 75ml/hr Spoke to Joann Rasmsusen ([phone]) (friend, POA), who stated that pt could answer questions and talk on 05/26. 06/13 Patient condition has not changed much. She opens eyes Bby call. When I saw this patient in the morning, she did not answer my questions. But I was reported that that she could answer a few very simple questions by yes or no. Oxygen saturation is good on room air Afebrile Blood pressure is not controlled (not on oral medication). Urine output is good White blood cells 10.9, sodium 149, AST 44, prolactin 7.7, Blood culture no growth so far Discussed with neurology Dr. Muñoz at [facility] in [place], who suggested to do MRI with and without contrast and lumbar puncture. He also suggested to start vancomycin, ceftriaxone, ampicillin, and acyclovir. Review of Systems ROS unobtainable: due to mental status Constitutional Vitals: Vital Signs Temp Pulse Resp BP Pulse Ox 98.2 F 83 18 169/86 97 06/13/20 12:43 06/12/20 06:05 06/13/20 13:10 06/13/20 12:01 06/13/20 13:10 Period Temp Pulse Resp BP Sys/Marte Pulse Ox Last 24 Hr 97.4 F-98.7 F 14-28 113-205/54-188 89-98 Intake and Output 06/13/20 06/13/20 06/13/20 05:59 13:59 21:59 Intake Total 50 1000 Output Total 800 Balance -750 1000 Weight 70.789 kg Patient Weight 06/14/20 05:59 Weight 70.789 kg Intake & Output: Intake & Output 06/13/20 06/13/20 06/13/20 05:59 13:59 21:59 Intake Total 50 1000 Output Total 800 Balance -750 1000 Weight 70.789 kg Intake: IV 50 1000 Dextrose 5%-1/2Ns IV Solution 1 1000 ,000 ml @ 75 mls/hr IV .[id number] [facility] Rx#:[id number] Merrem 1 gm In Sodium Chloride 50 0.9% 50 ml @ 100 mls/hr IV Q8H [facility] Rx#:[id number] Output: Urine Catheter Amount 800 Other: Urine Appearance Cloudy Cloudy Uretheral (Proctor) Cloudy Urine Color Dark Yellow Dark Yellow Uretheral (Proctor) Dark Yellow Urine Odor Strong Strong Additional findings Additional findings: General -opens eyes when shaking him. but does not answer questions Eyes -no conjunctival injection ENT no rhinorrhea, no redness or rash around throat or on face Neck no JVD, no thyromegaly Respiratory: Lungs -clear, no wheezing or crackles. Cardiovascular - RRR no m/r/g, GI - Normal bowel sounds, no distended, soft. Extremeties - No edema, cyanosis or clubbing Hemo/lymphatic/immune no lymphadenopathy Neurological not able to complete due to mental status. Psychiatry not able to complete due to mental status OBJ DATA Labs CBC & Chem 7: 06/13/20 04:23 06/13/20 04:23 Labs: Abnormal Lab Results 06/13/20 06/13/20 06/12/20 04:23 04:23 23:32 WBC RBC 3.95 L Hgb 10.5 L Hct 34.4 L MCHC 30.5 L Plt Count MPV 10.7 H Neut % (Auto) Lymph % (Auto) Absolute Neutrophils Sodium 149 H 151 H Potassium Chloride 116 H 119 H BUN Glucose 163 H 124 H Calcium 10.5 H 10.6 H Phosphorus AST 44 H Troponin T NT-Pro-B Natriuret Pep Total Protein 5.8 L Urine Appearance Urine Protein Ur Leukocyte Esterase Urine RBC Urine WBC Urine Bacteria Urine Mucus Ur Barbiturates Screen 06/12/20 06/12/20 06/12/20 17:13 15:35 13:57 WBC RBC Hgb Hct MCHC Plt Count MPV Neut % (Auto) Lymph % (Auto) Absolute Neutrophils Sodium 150 H 151 H Potassium Chloride 118 H 117 H BUN 25 H 26 H Glucose 159 H 155 H Calcium 10.7 H 11.0 H Phosphorus AST Troponin T NT-Pro-B Natriuret Pep Total Protein Urine Appearance Urine Protein Ur Leukocyte Esterase Urine RBC Urine WBC Urine Bacteria Urine Mucus Ur Barbiturates Screen Suspect positive A 06/12/20 06/12/20 06/12/20 05:20 05:20 05:20 WBC 12.9 H RBC Hgb Hct MCHC 30.9 L Plt Count 466 H MPV 10.6 H Neut % (Auto) Lymph % (Auto) Absolute Neutrophils 9.34 H Sodium 152 H Potassium 2.8 L* Chloride 114 H BUN 31 H Glucose 110 H Calcium 11.3 H Phosphorus 2.1 L AST 36 H Troponin T 0.06 H* NT-Pro-B Natriuret Pep 807.2 H Total Protein Urine Appearance Urine Protein Ur Leukocyte Esterase Urine RBC Urine WBC Urine Bacteria Urine Mucus Ur Barbiturates Screen 06/11/20 06/11/20 06/11/20 23:44 23:42 20:38 WBC RBC Hgb Hct MCHC Plt Count MPV Neut % (Auto) Lymph % (Auto) Absolute Neutrophils Sodium 149 H Potassium 2.9 L* Chloride 112 H BUN 33 H Glucose 132 H Calcium 11.4 H Phosphorus AST Troponin T 0.06 H* NT-Pro-B Natriuret Pep Total Protein Urine Appearance Turbid A Urine Protein 100 A Ur Leukocyte Esterase 500 A Urine RBC 32 H Urine WBC > 182 H Urine Bacteria Many A Urine Mucus Many A Ur Barbiturates Screen 06/11/20 06/11/20 20:38 20:38 WBC 13.0 H RBC Hgb Hct MCHC Plt Count 529 H MPV Neut % (Auto) 79.3 H Lymph % (Auto) 14.1 L Absolute Neutrophils 10.32 H Sodium 153 H Potassium 3.0 L Chloride 113 H BUN 35 H Glucose 176 H Calcium 12.1 H Phosphorus AST 37 H Troponin T NT-Pro-B Natriuret Pep Total Protein Urine Appearance Urine Protein Ur Leukocyte Esterase Urine RBC Urine WBC Urine Bacteria Urine Mucus Ur Barbiturates Screen Meds: Medications Acetaminophen (Tylenol) [address] Q6HP PRN; Protocol PRN Reason: Fever >101 Dextrose (Dextrose 50%) 0 ml IV UD PRN PRN Reason: Hypoglycemia Diagnostic Test (Pha) (Accu-Chek) 1 each FS Q6 [facility] Last Admin: 06/13/20 11:35 Dose: 1 each Documented by: Docusate Sodium (Colace) 100 mg PO BID [facility] Last Admin: 06/13/20 09:52 Dose: Not Given Documented by: Enoxaparin Sodium (Lovenox) 40 mg SQ DAILY [facility] Last Admin: 06/13/20 09:37 Dose: 40 mg Documented by: Hydralazine HCl (Apresoline) 10 mg IV Q4-6HP PRN PRN Reason: Hypertension Last Admin: 06/13/20 09:37 Dose: 10 mg Documented by: Dextrose/Sodium Chloride (Dextrose 5%-1/2ns Iv Solution) 1,000 mls @ 75 mls/hr IV .[id number] [facility] Last Admin: 06/13/20 08:17 Dose: 75 mls/hr Documented by: Acyclovir Sodium 700 mg/ (Sodium Chloride) 100 mls @ 100 mls/hr IV Q8H [facility] Vancomycin HCl 1,000 mg/ (Sodium Chloride) 250 mls @ 250 mls/hr IV Q12H [facility] Ceftriaxone Sodium 2 gm/ (Dextrose) 50 mls @ 100 mls/hr IV DAILY [facility] Insulin Glargine (Lantus) 15 unit SQ DAILY [facility] Last Admin: 06/13/20 09:36 Dose: 15 unit Documented by: Insulin Human Lispro (Humalog) 0 unit SQ Q6 [facility]; Protocol Last Admin: 06/13/20 11:47 Dose: 1 unit Documented by: Lactulose (Cephulac) 10 gm PO DAILYP PRN PRN Reason: Constipation Ondansetron HCl (Zofran) 4 mg IV Q4HP PRN; Protocol PRN Reason: Nausea And Vomiting Sodium Chloride (Saline Flush) 10 ml IV Q8 [facility] Last Admin: 06/13/20 09:26 Dose: Not Given Documented by: Vancomycin HCl (Vancomycin Per Pharmacy) 1 order IV UD [facility] A/P Narrative A/P Narrative: 1. AMS Etiology unknown. Could be due to sepsis, hypernatremia, multiple infarcts, or others Her sepsis and hypernatremia have improved but her mentation remains about the same. CT of the head no acute change Neuro check every [address] neurolog[address] Muñoz at [facility] in [place], who suggested to do MRI with and without contrast and lumbar puncture. He also suggested to start vancomycin, ceftriaxone, ampicillin, and acyclovir. As per Joann (POA), she has a piece of metal in her brain. Discussed with the radiologist Dr. Liriano, CTA brain was ordered. She is allergic to cephalosporin and penicillin. Vancomycin, ceftriaxone and acyclovir were ordered. Benadryl 25 mg 30 minutes before ceftriaxone is given. If the patient can tolerate ceftriaxone, I would add ampicillin tomorrow. 2. Sepsis 2nd to UTI improving Blood culture no growth so far Urine culture pending COVID-19 pending MRSA screen negative Continue IV fluid Discontinued meropenem 1 g every 8 hours Vancomycin, ceftriaxone and acyclovir 3. UTI Allergic to multiple antibiotics abx mentioned above. 4. Hematuria Repeat CBC in morning Repeat a urinalysis in 2 to 3 days 5. Hypernatremia D5 half-normal potassium chloride 75 cc/h BMP every 8 hours 6. Electrolytes derangement Replacement Repeat electrolytes in the morning 7. Dehydration IV fluid 8. DM type 2 Patient is on Lantus 17 units twice daily I will order Lantus 15 units daily because patient is on n.p.o. now Insulin sliding scale 9. Dementia CT of the head showed multiple old infarcts Home medication is on hold 10. DVT prophylaxis: Lovenox Time Spent With Patient Time: Total time spent is greater than 50% in coordination of care (as documented) at patient's floor/unit and/or counseling patient: QUALITY VTE Deep Vein Thrombosis/Pulmonary Embolism Present on Admission: No
[2020-06-13] MEDS: SODIUM CHLORIDE 0.9% IV SCH ×2 (14:47→21:46)
[2020-06-13] MEDS: ACYCLOVIR SODIUM IV SCH ×2 (14:47→21:46)
[2020-06-13] MEDS: VANCOMYCIN 1,000 MG in 0.9 % SODIUM CHLORIDE 250 ML IV SCH ×2 (14:47→23:03)
--- NOTE | 2020-06-13 15:04 | XRay Report ---
HISTORY: History: Decreased level of consciousness, evaluate for meningitis FINDINGS: The skin over the lower back was prepped with benign then anesthetized with 1% lidocaine. Using fluoroscopic guidance a 20-gauge needle was inserted into the spinal canal at the L3-4 level. There was no spontaneous return of CSF due to low CSF pressure. With gentle suction, 10 cc of clear CSF was removed and sent to laboratory for analysis. She tolerated the procedure well without complication. 48 seconds of fluoroscopy time was used. IMPRESSION: Successful lumbar puncture at L3-4, obtaining 10 cc of CSF Interpreted and Authenticated by: Maco Liriano 06/13/20
[2020-06-13] MEDS: cefTRIAXone 2 GM in DEXTROSE 5% IN WATER 50 ML IV SCH (16:02)
--- NOTE | 2020-06-13 16:04 | Cat Scan Report ---
History: Decreased level of consciousness TECHNIQUE: A CT angiogram was ordered. 80 cc of Isovue-370 was injected. Arterial phase images were acquired of the brain. MIPS and 3-D volume rendered images were created. Radiation exposure was limited using dose reduction technology. FINDINGS: A moderate amount calcified plaque is present in the cavernous portions of both internal carotids. These are causing approximately 75% stenosis of the left and 60% stenosis of the right supraclinoid portions of the internal carotids. Above the supraclinoid region the internal carotids are normal. The anterior and middle cerebral arteries are normal in caliber. The vertebral arteries, basilar artery and posterior fossa circulation are normal. There is no intracranial stenosis above the cavernous sinus and no thrombosis. No aneurysm or vascular malformation are present. There is no evidence of an enhancing lesion seen on this early arterial phase study. The dura does not appear to be thickened or inflamed. There is no evidence of a brain abscess. There are multiple old infarcts with encephalomalacia. There is involvement in the right occipital lobe, aponte radiata bilaterally and right basal ganglia. Infarcts have remained stable since the recent head CT done on 06/11/20. The sensitivity of detecting meningitis or encephalitis on this arterial phase study is less than a routine brain CT performed without and with contrast, scanning during the equilibrium phase. Impression: Stable bilateral infarcts with encephalomalacia. 75% stenosis of the supraclinoid portion of the left internal carotid due to densely calcified plaques Dr. Kulkarni was called with the results Interpreted and Authenticated by: Maco Liriano 06/13/20
[2020-06-13 22:24] LABS: Estimated Average Glucose(eAG) 114 mg/dL; Hemoglobin A1C 5.6 % Hgb (4.0-6.0)
[2020-06-14] MEDS: INSULIN LISPRO 1 UNIT/0.01 ML UNIT SQ SCH ×4 (00:28→17:50)
[2020-06-14] MEDS: DEXTROSE 5%-1/2NS 1,000 ML IV SCH ×2 (03:01→08:35)
[2020-06-14] MEDS: 0.9 % SODIUM CHLORIDE 10 ML SYRINGE IV SCH ×3 (05:30→22:04)
[2020-06-14] MEDS: SODIUM CHLORIDE 0.9% IV SCH ×3 (05:30→23:22)
[2020-06-14] MEDS: ACYCLOVIR SODIUM IV SCH ×3 (05:30→23:22)
[2020-06-14 06:07] LABS: Basophils # (Auto) 0.07 K/mcL (0.00-0.20); Basophils % (Auto) 0.6 % (0.0-2.0); Eosinophils # (Auto) 0.51 K/mcL (0.00-0.70); Eosinophils % (Auto) 4.6 % (0.0-7.0); Hematocrit 35.8 % (36.0-48.0); Hemoglobin 10.8 g/dL (12.0-15.0); Lymphocytes # (Auto) 2.44 K/mcL (1.50-4.80); Lymphocytes % (Auto) 22.2 % (15.0-49.0); Mean Cell Volume 85.6 fL (80.0-100.0); Mean Corpuscular HGB Conc 30.2 g/dL (31.0-36.0); Mean Platelet Volume 10.5 fL (7.4-10.4); Monocytes # (Auto) 0.67 K/mcL (0.10-0.90); Monocytes % (Auto) 6.1 % (1.0-12.0); Neutrophils % (Auto) 66.5 % (38.0-78.0); Platelet Count 366 K/mcL (140-440); RBC 4.18 M/mcL (4.00-5.20); Red Cell Distribution Width 13.2 % (11.5-14.5)
[2020-06-14 06:46] LABS: ALT/SGPT 44 U/L (<40); AST/SGOT 66 U/L (<32); Albumin 3.2 gm/dL (3.2-5.2); Albumin/Globulin Ratio 1.3 (1.0-2.3); Alkaline Phosphatase 62 U/L (39-117); Bilirubin,Total 0.3 mg/dL (0.1-1.0); Blood Urea Nitrogen 15 mg/dL (8-23); Calcium 10.6 mg/dL (8.6-10.4); Carbon Dioxide 23 mmol/L (22-30); Chloride 115 mmol/L (96-108); Globulin 2.5 gm/dL (2.2-3.7); Glomerular Filtration Rate 85; Glucose 154 mg/dL (70-105)
[2020-06-14] MEDS: DOCUSATE SODIUM 100 MG CAPSULE PO SCH ×2 (09:39→21:34)
[2020-06-14] MEDS: cefTRIAXone 2 GM in DEXTROSE 5% IN WATER 50 ML IV SCH (09:45)
[2020-06-14] MEDS ORDERED: POTASSIUM CHLORIDE 20 MEQ in DEXTROSE 5% IN WATER 250 ML IV ONE (10:00)
[2020-06-14] MEDS ORDERED: diphenhydrAMINE 50 MG/ML VIAL IV ONE (10:00)
[2020-06-14] MEDS: INSULIN GLARGINE, HUMAN 1 UNIT/0.01 ML SQ SCH (10:04)
[2020-06-14] MEDS: ENOXAPARIN 40 MG/0.4 ML SYRINGE SQ SCH (10:04)
[2020-06-14] MEDS: VANCOMYCIN 1,000 MG in 0.9 % SODIUM CHLORIDE 250 ML IV SCH ×2 (10:47→21:58)
[2020-06-14] MEDS: AMPICILLIN SODIUM 1 GM in 0.9 % SODIUM CHLORIDE 50 ML IV SCH ×3 (14:24→21:35)
--- NOTE | 2020-06-14 14:33 | Internal Med Progress Note ---
SUBJECTIVE Subjective Patient information: Note initiated : 06/14/20 at 2:30 pm Service Date, if different from initiated Date: [] Patient: Trevon Waller a 74 y/o F admitted on 06/11/20 for decreased LOC. Chief Complaint: [] Ms. Waller is a 74 year old F with a past medical history of diabetes and dementia who was sent to the ER from [facility] due to fever and decreased consciousness. Patient has not answer questions and all medical history is obtained from his chart. In the ER, urinalysis was compatible with UTI. 1 L normal saline was given. CT of the head and chest was performed and results pending. Patient is allergic to multiple antibiotics. When I saw this patient in the ER, patient could open eyes when I shook him but he did not answer any question. 06/12 Patient still does not answer questions but she can open eyes. Vital signs are stable and acceptable Patient is on room air with good oxygen saturation Blood sugar around 100 White blood cells 12.9, sodium of 152, potassium of 2.8, phosphorus 2.1 CT of the head showed Multiple old infarcts will start D5-1/2NS-20mEq KCl 75ml/hr Spoke to Joann Rasmussen ([phone]) (friend, POA), who stated that pt could answer questions and talk on 05/26. 06/13 Patient condition has not changed much. She opens eyes Bby call. When I saw this patient in the morning, she did not answer my questions. But I was reported that that she could answer a few very simple questions by yes or no. Oxygen saturation is good on room air Afebrile Blood pressure is not controlled (not on oral medication). Urine output is good White blood cells 10.9, sodium 149, AST 44, prolactin 7.7, Blood culture no growth so far Discussed with neurology Dr. Muñoz at [facility] in [place], who suggested to do MRI with and without contrast and lumbar puncture. He also suggested to start vancomycin, ceftriaxone, ampicillin, and acyclovir. 06/14 Patient mental status slightly improved. She seems to understand the questions and she is trying to answer questions. Blood pressure is not controlled. She is on IV hydralazine. Saturation is good on room air Sodium 147, potassium 3.1 Liver enzyme elevated She she underwent lumbar puncture yesterday. Results are pending She seems to tolerate her Rocephin Will try to add ampicillin. Benadryl 25 mg once 30 minutes before ampicillin starts Review of Systems ROS unobtainable: due to mental status Constitutional Vitals: Vital Signs Temp Pulse Resp BP Pulse Ox 97.3 F 83 18 163/68 95 06/14/20 08:01 06/12/20 06:05 06/14/20 14:03 06/14/20 14:03 06/14/20 14:11 Period Temp Pulse Resp BP Sys/Marte Pulse Ox Last 24 Hr 97.3 F-98.3 F 133-183/60-124 93-97 Intake and Output 06/14/20 06/14/20 06/14/20 05:59 13:59 21:59 Intake Total 350 400 Output Total 250 450 Balance 100 -50 Intake & Output: Intake & Output 06/14/20 06/14/20 06/14/20 05:59 13:59 21:59 Intake Total 350 400 Output Total 250 450 Balance 100 -50 Intake: IV 350 400 Zovirax 700 mg In Sodium 100 100 Chloride 0.9% 100 ml @ 100 mls/ hr IV Q8H [facility] Rx#:[id number] Vancomycin 1,000 mg In Sodium 250 250 Chloride 0.9% 250 ml @ 250 mls/ hr IV Q12H [facility] Rx#:[id number] Rocephin 2 gm In Dextrose 5% in 50 Water 50 ml @ 100 mls/hr IV DAILY [facility] Rx#:[id number] Output: Urine Catheter Amount 250 450 Other: Urine Appearance Clear Uretheral (Proctor) Clear Clear Urine Color Dark Yellow Dark Yellow Uretheral (Proctor) Dark Yellow Dark Yellow Urine Odor Normal Uretheral (Proctor) Strong Additional findings Additional findings: General - Mentation improving. Seems to be able to understand questions and answer single questions by yes or not. Eyes -no conjunctival injection ENT no rhinorrhea, no redness or rash around throat or on face Neck no JVD, no thyromegaly Respiratory: Lungs -clear, no wheezing or crackles. Cardiovascular - RRR no m/r/g, GI - Normal bowel sounds, no distended, soft. Extremeties - No edema, cyanosis or clubbing Hemo/lymphatic/immune no lymphadenopathy Neurological not able to complete due to mental status. Psychiatry not able to complete due to mental status OBJ DATA Labs CBC & Chem 7: 06/14/20 04:29 06/14/20 04:29 Labs: Abnormal Lab Results 06/14/20 06/14/20 06/13/20 04:29 04:29 04:32 WBC RBC Hgb 10.8 L Hct 35.8 L MCH 25.8 L MCHC 30.2 L Plt Count MPV 10.5 H Neut % (Auto) Lymph % (Auto) Absolute Neutrophils Sodium 147 H Potassium 3.1 L Chloride 115 H BUN Glucose 154 H Calcium 10.6 H Phosphorus 1.7 L AST 66 H ALT 44 H Troponin T NT-Pro-B Natriuret Pep Total Protein 5.7 L Urine Appearance Urine Protein Ur Leukocyte Esterase Urine RBC Urine WBC Urine Bacteria Urine Mucus Ur Barbiturates Screen 06/13/20 06/13/20 06/12/20 04:23 04:23 23:32 WBC RBC 3.95 L Hgb 10.5 L Hct 34.4 L MCH MCHC 30.5 L Plt Count MPV 10.7 H Neut % (Auto) Lymph % (Auto) Absolute Neutrophils Sodium 149 H 151 H Potassium Chloride 116 H 119 H BUN Glucose 163 H 124 H Calcium 10.5 H 10.6 H Phosphorus AST 44 H ALT Troponin T NT-Pro-B Natriuret Pep Total Protein 5.8 L Urine Appearance Urine Protein Ur Leukocyte Esterase Urine RBC Urine WBC Urine Bacteria Urine Mucus Ur Barbiturates Screen 06/12/20 06/12/20 06/12/20 17:13 15:35 13:57 WBC RBC Hgb Hct MCH MCHC Plt Count MPV Neut % (Auto) Lymph % (Auto) Absolute Neutrophils Sodium 150 H 151 H Potassium Chloride 118 H 117 H BUN 25 H 26 H Glucose 159 H 155 H Calcium 10.7 H 11.0 H Phosphorus AST ALT Troponin T NT-Pro-B Natriuret Pep Total Protein Urine Appearance Urine Protein Ur Leukocyte Esterase Urine RBC Urine WBC Urine Bacteria Urine Mucus Ur Barbiturates Screen Suspect positive A 06/12/20 06/12/20 06/12/20 05:20 05:20 05:20 WBC 12.9 H RBC Hgb Hct MCH MCHC 30.9 L Plt Count 466 H MPV 10.6 H Neut % (Auto) Lymph % (Auto) Absolute Neutrophils 9.34 H Sodium 152 H Potassium 2.8 L* Chloride 114 H BUN 31 H Glucose 110 H Calcium 11.3 H Phosphorus 2.1 L AST 36 H ALT Troponin T 0.06 H* NT-Pro-B Natriuret Pep 807.2 H Total Protein Urine Appearance Urine Protein Ur Leukocyte Esterase Urine RBC Urine WBC Urine Bacteria Urine Mucus Ur Barbiturates Screen 06/11/20 06/11/20 06/11/20 23:44 23:42 20:38 WBC RBC Hgb Hct MCH MCHC Plt Count MPV Neut % (Auto) Lymph % (Auto) Absolute Neutrophils Sodium 149 H Potassium 2.9 L* Chloride 112 H BUN 33 H Glucose 132 H Calcium 11.4 H Phosphorus AST ALT Troponin T 0.06 H* NT-Pro-B Natriuret Pep Total Protein Urine Appearance Turbid A Urine Protein 100 A Ur Leukocyte Esterase 500 A Urine RBC 32 H Urine WBC > 182 H Urine Bacteria Many A Urine Mucus Many A Ur Barbiturates Screen 06/11/20 06/11/20 20:38 20:38 WBC 13.0 H RBC Hgb Hct MCH MCHC Plt Count 529 H MPV Neut % (Auto) 79.3 H Lymph % (Auto) 14.1 L Absolute Neutrophils 10.32 H Sodium 153 H Potassium 3.0 L Chloride 113 H BUN 35 H Glucose 176 H Calcium 12.1 H Phosphorus AST 37 H ALT Troponin T NT-Pro-B Natriuret Pep Total Protein Urine Appearance Urine Protein Ur Leukocyte Esterase Urine RBC Urine WBC Urine Bacteria Urine Mucus Ur Barbiturates Screen Meds: Medications Acetaminophen (Tylenol) 325 mg SD Q6HP PRN; Protocol PRN Reason: Fever >101 Dextrose (Dextrose 50%) 0 ml IV UD PRN PRN Reason: Hypoglycemia Diagnostic Test (Pha) (Accu-Chek) 1 each FS Q6 [facility] Last Admin: 06/14/20 13:20 Dose: 1 each Documented by: Docusate Sodium (Colace) 100 mg PO BID [facility] Last Admin: 06/14/20 09:39 Dose: Not Given Documented by: Enoxaparin Sodium (Lovenox) 40 mg SQ DAILY [facility] Last Admin: 06/14/20 10:04 Dose: 40 mg Documented by: Hydralazine HCl (Apresoline) 10 mg IV Q4-6HP PRN PRN Reason: Hypertension Last Admin: 06/13/20 09:37 Dose: 10 mg Documented by: Dextrose/Sodium Chloride (Dextrose 5%-1/2ns Iv Solution) 1,000 mls @ 75 mls/hr IV .[id number] [facility] Last Admin: 06/14/20 08:35 Dose: Not Given Documented by: Acyclovir Sodium 700 mg/ (Sodium Chloride) 100 mls @ 100 mls/hr IV Q8H [facility] Last Infusion: 06/14/20 06:30 Dose: Infused Documented by: Vancomycin HCl 1,000 mg/ (Sodium Chloride) 250 mls @ 250 mls/hr IV Q12H [facility] Last Infusion: 06/14/20 13:27 Dose: Infused Documented by: Ceftriaxone Sodium 2 gm/ (Dextrose) 50 mls @ 100 mls/hr IV DAILY [facility] Last Infusion: 06/14/20 10:15 Dose: Infused Documented by: Ampicillin Sodium 1 gm/ Sodium (Chloride) 50 mls @ 100 mls/hr IV Q4H [facility] Potassium Phosphate 20 meq/ (Dextrose) 254.5455 mls @ 127.273 mls/hr IV ONCE ONE Stop: 06/14/20 16:27 Insulin Glargine (Lantus) 15 unit SQ DAILY [facility] Last Admin: 06/14/20 10:04 Dose: 15 unit Documented by: Insulin Human Lispro (Humalog) 0 unit SQ Q6 [facility]; Protocol Last Admin: 06/14/20 14:03 Dose: Not Given Documented by: Lactulose (Cephulac) 10 gm PO DAILYP PRN PRN Reason: Constipation Ondansetron HCl (Zofran) 4 mg IV Q4HP PRN; Protocol PRN Reason: Nausea And Vomiting Sodium Chloride (Saline Flush) 10 ml IV Q8 [facility] Last Admin: 06/14/20 14:03 Dose: Not Given Documented by: Vancomycin HCl (Vancomycin Per Pharmacy) 1 order IV UD [facility] A/P Narrative A/P Narrative: 1. AMS Etiology unknown. Could be due to sepsis, encephalitis/mengitis, hypernatremia, multiple infarcts, seizure or others As per Joann (POA), she was normal on 05/28 As per SNF, her mentation has been gradually declining over the past [address] of the head no acute change Neuro check every 4 [address] neurolog[address] Muñoz at [facility] in [place], who suggested to do MRI with and without contrast and lumbar puncture. He also suggested to start vancomycin, ceftriaxone, ampicillin, and acyclovir. She is allergic to cephalosporin and penicillin. She is now on Vancomycin, ceftriaxone and acyclovir. Will try ampicillin. Benadryl 25 mg 30 minutes before ampicillin is given. LP was performed yesterday. Results pending. 2. Sepsis 2nd to UTI improving Blood culture no growth so far Urine culture pending COVID-19 pending MRSA screen negative Continue IV fluid Discontinued meropenem 1 g every 8 hours Vancomycin, ceftriaxone, ampicillin and acyclovir 3. UTI Allergic to multiple antibiotics abx mentioned above. 4. Hematuria Repeat CBC in morning Repeat a urinalysis in 2 to 3 days 5. Hypernatremia D5 half-normal potassium chloride 75 cc/h BMP every 8 hours 6. Electrolytes derangement Replacement Repeat electrolytes in the morning 7. Dehydration IV fluid 8. DM type 2 Patient is on Lantus 17 units twice daily I will order Lantus 15 units daily because patient is on n.p.o. now Insulin sliding scale 9. Dementia CT of the head showed multiple old infarcts Home medication is on hold 10. DVT prophylaxis: Lovenox Time Spent With Patient Time: Total time spent is greater than 50% in coordination of care (as documented) at patient's floor/unit and/or counseling patient: QUALITY VTE Deep Vein Thrombosis/Pulmonary Embolism Present on Admission: No
[2020-06-14] MEDS ORDERED: POTASSIUM PHOSPHATE 20 MEQ in DEXTROSE 5% IN WATER 250 ML IV ONE (15:00)
[2020-06-14] MEDS ORDERED: ACETAMINOPHEN 650 MG/65 ML BOTTLE IV PRN (18:06)
[2020-06-15] MEDS: INSULIN LISPRO 1 UNIT/0.01 ML UNIT SQ SCH ×4 (00:11→17:50)
[2020-06-15] MEDS: DEXTROSE 5%-1/2NS 1,000 ML IV SCH (01:10)
[2020-06-15] MEDS: AMPICILLIN SODIUM 1 GM in 0.9 % SODIUM CHLORIDE 50 ML IV SCH ×6 (01:21→20:53)
[2020-06-15] MEDS: ACYCLOVIR SODIUM IV SCH ×3 (05:32→21:49)
[2020-06-15] MEDS: 0.9 % SODIUM CHLORIDE 10 ML SYRINGE IV SCH ×3 (05:32→21:50)
[2020-06-15] MEDS: SODIUM CHLORIDE 0.9% IV SCH ×3 (05:32→21:49)
[2020-06-15 06:47] LABS: Basophils # (Auto) 0.06 K/mcL (0.00-0.20); Basophils % (Auto) 0.7 % (0.0-2.0); Eosinophils # (Auto) 0.68 K/mcL (0.00-0.70); Eosinophils % (Auto) 7.6 % (0.0-7.0); Hematocrit 34.4 % (36.0-48.0); Hemoglobin 10.4 g/dL (12.0-15.0); Lymphocytes # (Auto) 2.28 K/mcL (1.50-4.80); Lymphocytes % (Auto) 25.4 % (15.0-49.0); Mean Cell Volume 86.4 fL (80.0-100.0); Mean Corpuscular HGB Conc 30.2 g/dL (31.0-36.0); Mean Platelet Volume 10.7 fL (7.4-10.4); Monocytes # (Auto) 0.48 K/mcL (0.10-0.90); Monocytes % (Auto) 5.4 % (1.0-12.0); Neutrophils % (Auto) 60.9 % (38.0-78.0); Platelet Count 320 K/mcL (140-440); RBC 3.98 M/mcL (4.00-5.20); Red Cell Distribution Width 13.1 % (11.5-14.5)
[2020-06-15 07:51] LABS: ALT/SGPT 41 U/L (<40); AST/SGOT 49 U/L (<32); Albumin/Globulin Ratio 1.3 (1.0-2.3); Alkaline Phosphatase 61 U/L (39-117); Bilirubin,Total 0.3 mg/dL (0.1-1.0); Blood Urea Nitrogen 12 mg/dL (8-23); Calcium 9.9 mg/dL (8.6-10.4); Carbon Dioxide 21 mmol/L (22-30); Chloride 111 mmol/L (96-108); Globulin 2.3 gm/dL (2.2-3.7); Glomerular Filtration Rate 95; Glucose 167 mg/dL (70-105)
[2020-06-15] MEDS: DEXTROSE 5%-1/2NS W/20MEQ KCL 1,000 ML IV SCH ×2 (08:35→22:50)
[2020-06-15] MEDS ORDERED: POTASSIUM CHLORIDE 20 MEQ in DEXTROSE 5% IN WATER 250 ML IV ONE (09:00)
[2020-06-15] MEDS: DOCUSATE SODIUM 100 MG CAPSULE PO SCH ×2 (09:20→20:47)
[2020-06-15] MEDS: cefTRIAXone 2 GM in DEXTROSE 5% IN WATER 50 ML IV SCH ×2 (09:27→12:10)
[2020-06-15] MEDS: VANCOMYCIN 1,000 MG in 0.9 % SODIUM CHLORIDE 250 ML IV SCH (09:28)
[2020-06-15] MEDS: INSULIN GLARGINE, HUMAN 1 UNIT/0.01 ML SQ SCH (09:33)
[2020-06-15] MEDS: ENOXAPARIN 40 MG/0.4 ML SYRINGE SQ SCH (09:33)
[2020-06-15 14:20] LABS: Glucose,CSF 97 mg/dL (40-70)
[2020-06-15 14:33] LABS: Lymphocytes,CSF 63 % (28-96); Monocytes,CSF 25 % (16-56); Neutrophils,CSF 13 % (0-7); Red Blood Cell,CSF 2 /cumm (0-1)
[2020-06-15] MEDS ORDERED: VANCOMYCIN 1,000 MG in 0.9 % SODIUM CHLORIDE 250 ML IV ONE (15:00)
--- NOTE | 2020-06-15 19:12 | Internal Med Progress Note ---
SUBJECTIVE Subjective Patient information: Note initiated : 06/15/20 at 7:06 pm Service Date, if different from initiated Date: [] Patient: Trevon Waller 74 y/o F admitted on 06/11/20 for decreased LOC. Chief Complaint: [] Ms. Waller is a 74 year old F with a past medical history of diabetes and d ementia who was sent to the ER from [facility] due to fever and decreased consciousness. Patient has not answer questions and all medical history is obtained from his chart. In the ER, urinalysis was compatible with UTI. 1 L normal saline was given. CT of the head and chest was performed and results pending. Patient is allergic to multiple antibiotics. When I saw this patient in the ER, patient could open eyes when I shook him but he did not answer any question. 06/12 Patient still does not answer questions but she can open eyes. Vital signs are stable and acceptable Patient is on room air with good oxygen saturation Blood sugar around 100 White blood cells 12.9, sodium of 152, potassium of 2.8, phosphorus 2.1 CT of the head showed Multiple old infarcts will start D5-1/2NS-20mEq KCl 75ml/hr Spoke to Joann Rasmussen ([phone]) (friend, POA), who stated that pt could answer questions and talk on 05/26. 06/13 Patient condition has not changed much. She opens eyes Bby call. When I saw this patient in the morning, she did not answer my questions. But I was reported that that she could answer a few very simple questions by yes or no. Oxygen saturation is good on room air Afebrile Blood pressure is not controlled (not on oral medication). Urine output is good White blood cells 10.9, sodium 149, AST 44, prolactin 7.7, Blood culture no growth so far Discussed with neurology Dr. Muñoz at [facility] in [place], who suggested to do MRI with and without contrast and lumbar puncture. He also suggested to start vancomycin, ceftriaxone, ampicillin, and acyclovir. 06/14 Patient mental status slightly improved. She seems to understand the questions and she is trying to answer questions. Blood pressure is not controlled. She is on IV hydralazine. Saturation is good on room air Sodium 147, potassium 3.1 Liver enzyme elevated She she underwent lumbar puncture yesterday. Results are pending She seems to tolerate her Rocephin Will try to add ampicillin. Benadryl 25 mg once 30 minutes before ampicillin starts 06/15 Pt's mental status is slightly improving. She can answer very simple questions although she slurs her speech. vital signs are stable and acceptable. Afebrile, WBC 9.0 CSF tests still pending She is now on 4 abx. No allergic reactions to ceftriaxone and ampiciline are noted. Review of Systems ROS unobtainable: due to mental status Constitutional Vitals: Vital Signs Temp Pulse Resp BP Pulse Ox 98.5 F 91 H 16 101/35 97 06/15/20 12:01 06/14/20 20:00 06/15/20 18:04 06/15/20 18:04 06/15/20 18:04 Period Temp Pulse Resp BP Sys/Marte Pulse Ox Last 24 Hr 97.1 F-98.5 F 91 11-22 101-181/35-120 94-98 Intake and Output 06/15/20 06/15/20 06/15/20 05:59 13:59 21:59 Intake Total 1029.5455 806 610 Output Total 425 400 250 Balance 604.5455 406 360 Weight 72.983 kg Patient Weight 06/16/20 05:59 Weight 72.983 kg Intake & Output: Intake & Output 06/15/20 06/15/20 06/15/20 05:59 13:59 21:59 Intake Total 1029.5455 806 610 Output Total 425 400 250 Balance 604.5455 406 360 Weight 72.983 kg Intake: IV 1029.5455 806 610 Zovirax 700 mg In Sodium 100 100 100 Chloride 0.9% 100 ml @ 100 mls/ hr IV Q8H [facility] Rx#:[id number] Ampicillin 1 gm In Sodium 100 100 Chloride 0.9% 50 ml @ 100 mls/ hr IV Q4H [facility] Rx#:[id number] Dextrose 5%-1/2Ns IV Solution 1 556 ,000 ml @ 75 mls/hr IV .[id number] [facility] Rx#:[id number] Potassium Chloride 20 Meq In 260 260 Dextrose 5% in Water 250 ml @ 65 mls/hr IV ONCE ONE Rx#: [id number] Potassium Phosphate 20 Meq In 254.5455 Dextrose 5% in Water 250 ml @ 127.273 mls/hr IV ONCE ONE Rx#: [id number] Vancomycin 1,000 mg In Sodium 250 250 Chloride 0.9% 250 ml @ 250 mls/ hr IV ONCE ONE Rx#:[id number] Rocephin 2 gm In Dextrose 5% in 50 Water 50 ml @ 100 mls/hr IV DAILY@1000 [facility] Rx#:[id number] Output: Urine Catheter Amount 425 400 250 Other: Urine Appearance Clear Clear Clear Uretheral (Proctor) Clear Clear Urine Color Straw Bright Yellow Bright Yellow Uretheral (Proctor) Bright Yellow Bright Yellow Bright Yellow Urine Odor Strong Normal Strong Additional findings Additional findings: General - Mentation slightly improving. Seems to be able to understand questions and answer single questions although she slurs her speech. Eyes -no conjunctival injection ENT no rhinorrhea, no redness or rash around throat or on face Neck no JVD, no thyromegaly Respiratory: Lungs -clear, no wheezing or crackles. Cardiovascular - RRR no m/r/g, GI - Normal bowel sounds, no distended, soft. Extremeties - No edema, cyanosis or clubbing Hemo/lymphatic/immune no lymphadenopathy Neurological not able to complete due to mental status. Psychiatry not able to complete due to mental status OBJ DATA Labs CBC & Chem 7: 06/15/20 05:14 06/15/20 05:12 Labs: Abnormal Lab Results 06/15/20 06/15/20 06/14/20 05:14 05:12 04:29 RBC 3.98 L Hgb 10.4 L Hct 34.4 L MCH MCHC 30.2 L MPV 10.7 H Eos % (Auto) 7.6 H Sodium 147 H Potassium 2.9 L* 3.1 L Chloride 111 H 115 H Carbon Dioxide 21 L BUN Creatinine 0.5 L Glucose 167 H 154 H Calcium 10.6 H Phosphorus AST 49 H 66 H ALT 41 H 44 H Total Protein 5.3 L 5.7 L Albumin 3.0 L CSF RBC CSF Neutrophils CSF Glucose CSF Total Protein Ur Barbiturates Screen 06/14/20 06/13/20 06/13/20 04:29 15:29 04:32 RBC Hgb 10.8 L Hct 35.8 L MCH 25.8 L MCHC 30.2 L MPV 10.5 H Eos % (Auto) Sodium Potassium Chloride Carbon Dioxide BUN Creatinine Glucose Calcium Phosphorus 1.7 L AST ALT Total Protein Albumin CSF RBC 2 H CSF Neutrophils 13 H CSF Glucose 97 H CSF Total Protein 70.0 H Ur Barbiturates Screen 06/13/20 06/13/20 06/12/20 04:23 04:23 23:32 RBC 3.95 L Hgb 10.5 L Hct 34.4 L MCH MCHC 30.5 L MPV 10.7 H Eos % (Auto) Sodium 149 H 151 H Potassium Chloride 116 H 119 H Carbon Dioxide BUN Creatinine Glucose 163 H 124 H Calcium 10.5 H 10.6 H Phosphorus AST 44 H ALT Total Protein 5.8 L Albumin CSF RBC CSF Neutrophils CSF Glucose CSF Total Protein Ur Barbiturates Screen 06/12/20 06/12/20 15:35 13:57 RBC Hgb Hct MCH MCHC MPV Eos % (Auto) Sodium 151 H Potassium Chloride 117 H Carbon Dioxide BUN 26 H Creatinine Glucose 155 H Calcium 11.0 H Phosphorus AST ALT Total Protein Albumin CSF RBC CSF Neutrophils CSF Glucose CSF Total Protein Ur Barbiturates Screen Suspect positive A Meds: Medications Acetaminophen (Tylenol) 325 mg IA Q6HP PRN; Protocol PRN Reason: Fever >101 Dextrose (Dextrose 50%) 0 ml IV UD PRN PRN Reason: Hypoglycemia Diagnostic Test (Pha) (Accu-Chek) 1 each FS Q6 [facility] Last Admin: 06/15/20 17:50 Dose: 1 each Documented by: Docusate Sodium (Colace) 100 mg PO BID [facility] Last Admin: 06/15/20 09:20 Dose: Not Given Documented by: Enoxaparin Sodium (Lovenox) 40 mg SQ DAILY [facility] Last Admin: 06/15/20 09:33 Dose: 40 mg Documented by: Hydralazine HCl (Apresoline) 10 mg IV Q4-6HP PRN PRN Reason: Hypertension Last Admin: 06/13/20 09:37 Dose: 10 mg Documented by: Acyclovir Sodium 700 mg/ (Sodium Chloride) 100 mls @ 100 mls/hr IV Q8H [facility] Last Infusion: 06/15/20 15:00 Dose: Infused Documented by: Ampicillin Sodium 1 gm/ Sodium (Chloride) 50 mls @ 100 mls/hr IV Q4H [facility] Last Admin: 06/15/20 17:45 Dose: 100 mls/hr Documented by: Acetaminophen (Ofirmev) 650 mg in 65 mls @ 130 mls/hr IV Q8HP PRN; Protocol PRN Reason: PAIN LEVEL 3-6 Last Infusion: 06/15/20 01:15 Dose: Infused Documented by: Potassium Chloride/Dextrose/Sod Cl (Dextrose 5%-1/2ns W/20meq Kcl) 1,000 mls @ 75 mls/hr IV .[id number] [facility] Last Admin: 06/15/20 08:35 Dose: 75 mls/hr Documented by: Ceftriaxone Sodium 2 gm/ (Dextrose) 50 mls @ 100 mls/hr IV DAILY@1000 [facility] Last Infusion: 06/15/20 12:45 Dose: Infused Documented by: Vancomycin HCl 1,000 mg/ (Sodium Chloride) 250 mls @ 250 mls/hr IV BID@1000,2200 [facility] Insulin Glargine (Lantus) 15 unit SQ DAILY [facility] Last Admin: 06/15/20 09:33 Dose: 15 unit Documented by: Insulin Human Lispro (Humalog) 0 unit SQ Q6 [facility]; Protocol Last Admin: 06/15/20 17:50 Dose: 1 unit Documented by: Lactulose (Cephulac) 10 gm PO DAILYP PRN PRN Reason: Constipation Ondansetron HCl (Zofran) 4 mg IV Q4HP PRN; Protocol PRN Reason: Nausea And Vomiting Sodium Chloride (Saline Flush) 10 ml IV Q8 [facility] Last Admin: 06/15/20 12:21 Dose: 10 ml Documented by: Vancomycin HCl (Vancomycin Per Pharmacy) 1 order IV UD [facility] A/P Narrative A/P Narrative: 1. AMS Etiology unknown. Could be due to sepsis, encephalitis/meningitis, hypernatremia, multiple infarcts, seizure or others As per Joann (POA), she was normal on 05/28 As per SNF, her mentation has been gradually declining over the past [address] of the head no acute change Neuro check every 4 [address] neurology [address] Muñoz at [facility] in [place], who suggested to do MRI with and without contrast and lumbar puncture. He also suggested to start vancomycin, ceftriaxone, ampicillin, and acyclovir. She is now on Vancomycin, ceftriaxone, ampicillin and acyclovir. No allergic reactions to ceftriaxone and ampicillin noted LP was performed. Results pending. 2. Sepsis 2nd to UTI improving Blood culture no growth so far Urine culture pending COVID-19 pending MRSA screen negative Continue IV fluid Discontinued meropenem 1 g every 8 hours Vancomycin, ceftriaxone, ampicillin and acyclovir 3. UTI Allergic to multiple antibiotics abx mentioned above. 4. Hematuria Repeat CBC in morning Repeat a urinalysis in 1-2 days 5. Hypernatremia D5 half-normal potassium chloride 75 cc/h BMP every 8 hours 6. Electrolytes derangement Replacement Repeat electrolytes in the morning 7. Dehydration almost resolved 8. DM type 2 Patient is on Lantus 17 units twice daily Lantus 15 units daily because patient is on n.p.o. now Insulin sliding scale 9. Dementia CT of the head showed multiple old infarcts Home medication is on hold 10. DVT prophylaxis: Lovenox Time Spent With Patient Time: Total time spent is greater than 50% in coordination of care (as documented) at patient's floor/unit and/or counseling patient: QUALITY VTE Deep Vein Thrombosis/Pulmonary Embolism Present on Admission: No
[2020-06-15] MEDS ORDERED: VANCOMYCIN 1,000 MG in 0.9 % SODIUM CHLORIDE 250 ML IV SCH (22:00)
[2020-06-16] MEDS: AMPICILLIN SODIUM 1 GM in 0.9 % SODIUM CHLORIDE 50 ML IV SCH ×2 (00:48→04:44)
[2020-06-16] MEDS: INSULIN LISPRO 1 UNIT/0.01 ML UNIT SQ SCH ×4 (00:53→18:11)
[2020-06-16] MEDS: 0.9 % SODIUM CHLORIDE 10 ML SYRINGE IV SCH ×3 (05:29→21:49)
[2020-06-16] MEDS: ACYCLOVIR SODIUM IV SCH ×3 (05:36→21:48)
[2020-06-16] MEDS: SODIUM CHLORIDE 0.9% IV SCH ×3 (05:36→21:48)
[2020-06-16 06:25] LABS: Basophils # (Auto) 0.05 K/mcL (0.00-0.20); Basophils % (Auto) 0.6 % (0.0-2.0); Eosinophils # (Auto) 0.94 K/mcL (0.00-0.70); Eosinophils % (Auto) 10.9 % (0.0-7.0); Hematocrit 31.9 % (36.0-48.0); Hemoglobin 10.2 g/dL (12.0-15.0); Lymphocytes # (Auto) 1.87 K/mcL (1.50-4.80); Lymphocytes % (Auto) 21.7 % (15.0-49.0); Mean Cell Volume 81.8 fL (80.0-100.0); Mean Platelet Volume 10.9 fL (7.4-10.4); Monocytes # (Auto) 0.46 K/mcL (0.10-0.90); Monocytes % (Auto) 5.3 % (1.0-12.0); Neutrophils % (Auto) 61.5 % (38.0-78.0); Platelet Count 298 K/mcL (140-440); Red Cell Distribution Width 12.9 % (11.5-14.5); WBC 8.6 K/mcL (4.5-11.0)
[2020-06-16] MEDS: DOCUSATE SODIUM 100 MG CAPSULE PO SCH ×2 (07:07→21:45)
[2020-06-16 07:36] LABS: ALT/SGPT 32 U/L (<40); AST/SGOT 36 U/L (<32); Albumin 2.9 gm/dL (3.2-5.2); Albumin/Globulin Ratio 1.3 (1.0-2.3); Alkaline Phosphatase 64 U/L (39-117); Bilirubin,Total 0.3 mg/dL (0.1-1.0); Blood Urea Nitrogen 8 mg/dL (8-23); Carbon Dioxide 22 mmol/L (22-30); Chloride 108 mmol/L (96-108); Globulin 2.2 gm/dL (2.2-3.7); Glomerular Filtration Rate 95; Glucose 151 mg/dL (70-105)
[2020-06-16] MEDS ORDERED: POTASSIUM CHLORIDE 20 MEQ/15 ML ML PO PRN (08:22)
[2020-06-16] MEDS ORDERED: MAGNESIUM SULFATE 2 GM/50 ML BAG IV PRN (08:22)
[2020-06-16] MEDS: INSULIN GLARGINE, HUMAN 1 UNIT/0.01 ML SQ SCH (08:59)
[2020-06-16] MEDS: ENOXAPARIN 40 MG/0.4 ML SYRINGE SQ SCH (09:00)
[2020-06-16] MEDS: POTASSIUM CHLORIDE 40 MEQ in DEXTROSE 5% IN WATER 500 ML IV PRN (09:12)
--- NOTE | 2020-06-16 09:57 | Internal Med Progress Note ---
SUBJECTIVE Subjective Patient information: Note initiated : 06/16/20 at 9:48 am Service Date, if different from initiated Date: [] Patient: Trevon Waller 74 y/o F admitted on 06/11/20 for decreased LOC. Chief Complaint: [] Ms. Waller is a 74 year old F with a past medical history of diabetes and de mentia who was sent to the ER from [facility] due to fever and decreased consciousness. Patient has not answer questions and all medical history is obtained from his chart. In the ER, urinalysis was compatible with UTI. 1 L normal saline was given. CT of the head and chest was performed and results pending. Patient is allergic to multiple antibiotics. When I saw this patient in the ER, patient could open eyes when I shook him but he did not answer any question. 06/12 Patient still does not answer questions but she can open eyes. Vital signs are stable and acceptable Patient is on room air with good oxygen saturation Blood sugar around 100 White blood cells 12.9, sodium of 152, potassium of 2.8, phosphorus 2.1 CT of the head showed Multiple old infarcts will start D5-1/2NS-20mEq KCl 75ml/hr Spoke to Joann Rasmussen ([phone]) (friend, POA), who stated that pt could answer questions and talk on 05/26. 06/13 Patient condition has not changed much. She opens eyes Bby call. When I saw this patient in the morning, she did not answer my questions. But I was reported that that she could answer a few very simple questions by yes or no. Oxygen saturation is good on room air Afebrile Blood pressure is not controlled (not on oral medication). Urine output is good White blood cells 10.9, sodium 149, AST 44, prolactin 7.7, Blood culture no growth so far Discussed with neurology Dr. Muñoz at [facility] in [place], who suggested to do MRI with and without contrast and lumbar puncture. He also suggested to start vancomycin, ceftriaxone, ampicillin, and acyclovir. 06/14 Patient mental status slightly improved. She seems to understand the questions and she is trying to answer questions. Blood pressure is not controlled. She is on IV hydralazine. Saturation is good on room air Sodium 147, potassium 3.1 Liver enzyme elevated She she underwent lumbar puncture yesterday. Results are pending She seems to tolerate her urinary coverage Will try to add ampicillin. Benadryl 25 mg once 30 minutes before ampicillin starts 06/15 Pt's mental status is slightly improving. She can answer very simple questions although she slurs her speech. vital signs are stable and acceptable. Afebrile, WBC 9.0 CSF tests still pending She is now on 4 abx. 06/16-CSF studies 1 WBC with no evidence of bacterial infection. DC ampicillin/vancomycin. Continue acyclovir. Low potassium magnesium on replacement. Remains minimally responsive. Continue Rocephin for Proteus coverage. Constitutional Vitals: Vital Signs Temp Pulse Resp BP Pulse Ox 97.0 F 91 H 10 L 172/60 95 06/16/20 08:01 06/14/20 20:00 06/16/20 08:01 06/16/20 08:01 06/16/20 08:01 Period Temp Pulse Resp BP Sys/Marte Pulse Ox Last 24 Hr 96.9 F-98.5 F 06-25 101-172/35-120 95-99 Intake and Output 06/15/20 06/16/20 06/16/20 21:59 05:59 13:59 Intake Total 660 500 100 Output Total 475 375 125 Balance 185 125 -25 Weight 72.983 kg Intake & Output: Intake & Output 06/15/20 06/16/20 06/16/20 21:59 05:59 13:59 Intake Total 660 500 100 Output Total 475 375 125 Balance 185 125 -25 Weight 72.983 kg Intake: IV 660 500 100 Zovirax 700 mg In Sodium 100 100 100 Chloride 0.9% 100 ml @ 100 mls/ hr IV Q8H [facility] Rx#:[id number] Ampicillin 1 gm In Sodium 50 150 Chloride 0.9% 50 ml @ 100 mls/ hr IV Q4H [facility] Rx#:[id number] Potassium Chloride 20 Meq In 260 Dextrose 5% in Water 250 ml @ 65 mls/hr IV ONCE ONE Rx#: [id number] Vancomycin 1,000 mg In Sodium 250 250 Chloride 0.9% 250 ml @ 250 mls/ hr IV BID@1000,2200 [facility] Rx#: [id number] Output: Urine Catheter Amount 475 375 125 Other: Urine Appearance Clear Clear Clear Uretheral (Proctor) Clear Clear Clear Urine Color Bright Yellow Dark Yellow Bright Yellow Uretheral (Proctor) Straw Dark Yellow Dark Yellow Urine Odor Strong Strong Uretheral (Proctor) Normal Strong OBJ DATA Labs CBC & Chem 7: 06/16/20 05:20 06/16/20 05:20 Labs: Abnormal Lab Results 06/16/20 06/16/20 06/15/20 05:20 05:20 21:20 RBC 3.90 L Hgb 10.2 L Hct 31.9 L MCH MCHC MPV 10.9 H Eos % (Auto) 10.9 H Eos # (Auto) 0.94 H Sodium Potassium 3.1 L 3.1 L Chloride Carbon Dioxide Creatinine 0.5 L Glucose 151 H Calcium Phosphorus AST 36 H ALT Total Protein 5.1 L Albumin 2.9 L CSF RBC CSF Neutrophils CSF Glucose CSF Total Protein 06/15/20 06/15/20 06/14/20 05:14 05:12 04:29 RBC 3.98 L Hgb 10.4 L Hct 34.4 L MCH MCHC 30.2 L MPV 10.7 H Eos % (Auto) 7.6 H Eos # (Auto) Sodium 147 H Potassium 2.9 L* 3.1 L Chloride 111 H 115 H Carbon Dioxide 21 L Creatinine 0.5 L Glucose 167 H 154 H Calcium 10.6 H Phosphorus AST 49 H 66 H ALT 41 H 44 H Total Protein 5.3 L 5.7 L Albumin 3.0 L CSF RBC CSF Neutrophils CSF Glucose CSF Total Protein 06/14/20 06/13/20 06/13/20 04:29 15:29 04:32 RBC Hgb 10.8 L Hct 35.8 L MCH 25.8 L MCHC 30.2 L MPV 10.5 H Eos % (Auto) Eos # (Auto) Sodium Potassium Chloride Carbon Dioxide Creatinine Glucose Calcium Phosphorus 1.7 L AST ALT Total Protein Albumin CSF RBC 2 H CSF Neutrophils 13 H CSF Glucose 97 H CSF Total Protein 70.0 H Meds: Medications Acetaminophen (Tylenol) 325 mg NC Q6HP PRN; Protocol PRN Reason: Fever >101 Dextrose (Dextrose 50%) 0 ml IV UD PRN PRN Reason: Hypoglycemia Diagnostic Test (Pha) (Accu-Chek) 1 each FS Q6 [facility] Last Admin: 06/16/20 05:28 Dose: 1 each Documented by: Docusate Sodium (Colace) 100 mg PO BID [facility] Last Admin: 06/16/20 07:07 Dose: Not Given Documented by: Enoxaparin Sodium (Lovenox) 40 mg SQ DAILY [facility] Last Admin: 06/16/20 09:00 Dose: 40 mg Documented by: Hydralazine HCl (Apresoline) 10 mg IV Q4-6HP PRN PRN Reason: Hypertension Last Admin: 06/13/20 09:37 Dose: 10 mg Documented by: Acyclovir Sodium 700 mg/ (Sodium Chloride) 100 mls @ 100 mls/hr IV Q8H [facility] Last Infusion: 06/16/20 06:40 Dose: Infused Documented by: Acetaminophen (Ofirmev) 650 mg in 65 mls @ 130 mls/hr IV Q8HP PRN; Protocol PRN Reason: PAIN LEVEL 3-6 Last Infusion: 06/15/20 01:15 Dose: Infused Documented by: Potassium Chloride/Dextrose/Sod Cl (Dextrose 5%-1/2ns W/20meq Kcl) 1,000 mls @ 75 mls/hr IV .[id number] [facility] Last Admin: 06/15/20 22:50 Dose: Not Given Documented by: Ceftriaxone Sodium 2 gm/ (Dextrose) 50 mls @ 100 mls/hr IV DAILY@1000 [facility] Last Infusion: 06/15/20 12:45 Dose: Infused Documented by: Magnesium Sulfate (Magnesium Sulfate) 2 gm in 50 mls @ 50 mls/hr IV UD PRN PRN Reason: Mag < or = 1.7 Potassium Chloride 40 meq/ (Dextrose) 520 mls @ 130 mls/hr IV UD PRN PRN Reason: K+ = or < 3.5 Last Admin: 06/16/20 09:12 Dose: 130 mls/hr Documented by: Insulin Glargine (Lantus) 15 unit SQ DAILY [facility] Last Admin: 06/16/20 08:59 Dose: 15 unit Documented by: Insulin Human Lispro (Humalog) 0 unit SQ Q6 [facility]; Protocol Last Admin: 06/16/20 05:36 Dose: 1 unit Documented by: Lactulose (Cephulac) 10 gm PO DAILYP PRN PRN Reason: Constipation Ondansetron HCl (Zofran) 4 mg IV Q4HP PRN; Protocol PRN Reason: Nausea And Vomiting Potassium Chloride (Potassium Chloride) 20 meq PO BIDCC PRN PRN Reason: K <3.6 Sodium Chloride (Saline Flush) 10 ml IV Q8 [facility] Last Admin: 06/16/20 05:29 Dose: 10 ml Documented by: A/P Narrative A/P Narrative: * Acute change in mental status Etiology in question. C rule out encephalitis As per Joann (POA), she was normal on 05/28 As per SNF, her mentation has been gradually declining over the past [address] of the head no acute change Discussed with neurology Dr. Muñoz at [facility] in [place], who suggested to do MRI with and without contrast and lumbar puncture. He also suggested to start vancomycin, ceftriaxone, ampicillin, and acyclovir. LP was performed. CSF 1 WBC. Continue acyclovir. DCd ampicillin/vancomycin 06/16. * Sepsis 2nd to UTI,improving,Continue Rocephin * Complicated Proteus UTI * Hypokalemia on replacement * Hypernatremia-improved with D5 half-normal potassium chloride 75 cc/h * DM type 2-on basal prandial insulin * History dementia multiinfarcts on CT * Prophylaxis Plan * DC ampicillin/vancomycin * Continue acyclovir/Rocephin * Await CSF studies * Aggressive electrolyte replacement * Crystalloids * Nutrition support * Continue close monitoring Time Spent With Patient Time: Total time spent is greater than 50% in coordination of care (as docum ented) at patient's floor/unit and/or counseling patient: QUALITY VTE Deep Vein Thrombosis/Pulmonary Embolism Present on Admission: No
[2020-06-16] MEDS: cefTRIAXone 2 GM in DEXTROSE 5% IN WATER 50 ML IV SCH (10:43)
[2020-06-16] MEDS: DEXTROSE 5%-1/2NS W/20MEQ KCL 1,000 ML IV SCH (11:19)
[2020-06-16 11:20] LABS: Phosphorous 2.3 mg/dL (2.5-4.5)
[2020-06-16 15:30] LABS: Appearance,CSF Clear; Nucleated Cells,CSF 1 /cumm (0-5)
[2020-06-17] MEDS: INSULIN LISPRO 1 UNIT/0.01 ML UNIT SQ SCH ×4 (00:25→17:37)
[2020-06-17] MEDS: DEXTROSE 5%-1/2NS W/20MEQ KCL 1,000 ML IV SCH ×2 (00:25→17:36)
[2020-06-17] MEDS: ACYCLOVIR SODIUM IV SCH ×3 (05:38→21:13)
[2020-06-17] MEDS: 0.9 % SODIUM CHLORIDE 10 ML SYRINGE IV SCH ×3 (05:38→21:02)
[2020-06-17] MEDS: SODIUM CHLORIDE 0.9% IV SCH ×3 (05:38→21:13)
[2020-06-17 06:32] LABS: Basophils # (Auto) 0.04 K/mcL (0.00-0.20); Basophils % (Auto) 0.5 % (0.0-2.0); Eosinophils # (Auto) 0.69 K/mcL (0.00-0.70); Eosinophils % (Auto) 8.6 % (0.0-7.0); Hematocrit 29.8 % (36.0-48.0); Hemoglobin 9.4 g/dL (12.0-15.0); Lymphocytes % (Auto) 21.2 % (15.0-49.0); Mean Cell Volume 83.5 fL (80.0-100.0); Mean Corpuscular HGB Conc 31.5 g/dL (31.0-36.0); Mean Platelet Volume 10.9 fL (7.4-10.4); Monocytes # (Auto) 0.42 K/mcL (0.10-0.90); Monocytes % (Auto) 5.2 % (1.0-12.0); Neutrophils % (Auto) 64.5 % (38.0-78.0); Platelet Count 270 K/mcL (140-440); RBC 3.57 M/mcL (4.00-5.20); Red Cell Distribution Width 12.8 % (11.5-14.5)
[2020-06-17 06:49] LABS: ALT/SGPT 22 U/L (<40); AST/SGOT 21 U/L (<32); Albumin 2.6 gm/dL (3.2-5.2); Albumin/Globulin Ratio 1.2 (1.0-2.3); Alkaline Phosphatase 60 U/L (39-117); Bilirubin,Total 0.2 mg/dL (0.1-1.0); Blood Urea Nitrogen 5 mg/dL (8-23); Calcium 9.7 mg/dL (8.6-10.4); Carbon Dioxide 23 mmol/L (22-30); Chloride 107 mmol/L (96-108); Globulin 2.2 gm/dL (2.2-3.7); Glomerular Filtration Rate 95; Glucose 167 mg/dL (70-105)
[2020-06-17] MEDS: POTASSIUM CHLORIDE 40 MEQ in DEXTROSE 5% IN WATER 500 ML IV PRN (08:33)
[2020-06-17] MEDS: DOCUSATE SODIUM 100 MG CAPSULE PO SCH ×2 (09:38→21:02)
[2020-06-17] MEDS: INSULIN GLARGINE, HUMAN 1 UNIT/0.01 ML SQ SCH (09:48)
[2020-06-17] MEDS: cefTRIAXone 2 GM in DEXTROSE 5% IN WATER 50 ML IV SCH (09:49)
[2020-06-17] MEDS: ENOXAPARIN 40 MG/0.4 ML SYRINGE SQ SCH (09:49)
--- NOTE | 2020-06-17 10:40 | Internal Med Progress Note ---
SUBJECTIVE Subjective Patient information: Note initiated : 06/17/20 at 10:35 am Service Date, if different from initiated Date: [] Patient: Trevon Waller 74 y/o F admitted on 06/11/20 for decreased LOC. Chief Complaint: [] Ms. Waller is a 74 year old F with a past medical history of diabetes and d ementia who was sent to the ER from [facility] due to fever and decreased consciousness. Patient has not answer questions and all medical history is obtained from his chart. In the ER, urinalysis was compatible with UTI. 1 L normal saline was given. CT of the head and chest was performed and results pending. Patient is allergic to multiple antibiotics. When I saw this patient in the ER, patient could open eyes when I shook him but he did not answer any question. 06/12 Patient still does not answer questions but she can open eyes. Vital signs are stable and acceptable Patient is on room air with good oxygen saturation Blood sugar around 100 White blood cells 12.9, sodium of 152, potassium of 2.8, phosphorus 2.1 CT of the head showed Multiple old infarcts will start D5-1/2NS-20mEq KCl 75ml/hr Spoke to Joann Rasmussen ([phone]) (friend, POA), who stated that pt could answer questions and talk on 05/26. 06/13 Patient condition has not changed much. She opens eyes Bby call. When I saw this patient in the morning, she did not answer my questions. But I was reported that that she could answer a few very simple questions by yes or no. Oxygen saturation is good on room air Afebrile Blood pressure is not controlled (not on oral medication). Urine output is good White blood cells 10.9, sodium 149, AST 44, prolactin 7.7, Blood culture no growth so far Discussed with neurology Dr. Muñoz at [facility] in [place], who suggested to do MRI with and without contrast and lumbar puncture. He also suggested to start vancomycin, ceftriaxone, ampicillin, and acyclovir. 06/14 Patient mental status slightly improved. She seems to understand the questions and she is trying to answer questions. Blood pressure is not controlled. She is on IV hydralazine. Saturation is good on room air Sodium 147, potassium 3.1 Liver enzyme elevated She she underwent lumbar puncture yesterday. Results are pending She seems to tolerate her urinary coverage Will try to add ampicillin. Benadryl 25 mg once 30 minutes before ampicillin starts 06/15 Pt's mental status is slightly improving. She can answer very simple questions although she slurs her speech. vital signs are stable and acceptable. Afebrile, WBC 9.0 CSF tests still pending She is now on 4 abx. 06/16-CSF studies 1 WBC with no evidence of bacterial infection. DC ampicillin/vancomycin. Continue acyclovir. Low potassium magnesium on replacement. Remains minimally responsive. Continue Rocephin for Proteus coverage. 06/17-patient clinically status quo. Remains minimally responsive. However labs and imaging much improved. Proctor is draining clear urine. White count 8000, electrolytes stable, viral encephalitis panel pending. Case discussed with patient's family including cousin Mal, he will further discuss patient scenario with patient's POA sister. Family is considering initiation of comfort care due to persistent altered mental status change and no clinical improvement over the last 5 days. Constitutional Vitals: Vital Signs Temp Pulse Resp BP Pulse Ox 97.3 F 91 H 13 110/45 99 06/17/20 08:01 06/14/20 20:00 06/17/20 08:01 06/17/20 08:01 06/17/20 08:01 Period Temp Pulse Resp BP Sys/Marte Pulse Ox Last 24 Hr 96.9 F-98.1 F 12-27 110-157/45-91 95-100 Intake and Output 06/16/20 06/17/20 06/17/20 21:59 05:59 13:59 Intake Total 390 1083 100 Output Total 575 500 0 Balance -185 583 100 Weight 75.478 kg Minimal responsive Resting comfortably Proctor draining clear urine Telemetry no events Intake & Output: Intake & Output 06/16/20 06/17/20 06/17/20 21:59 05:59 13:59 Intake Total 390 1083 100 Output Total 575 500 0 Balance -185 583 100 Weight 75.478 kg Intake: IV 150 1083 100 Zovirax 700 mg In Sodium 100 100 100 Chloride 0.9% 100 ml @ 100 mls/ hr IV Q8H [facility] Rx#:[id number] Dextrose 5%-1/2Ns W/20Meq KCl 1 983 ,000 ml @ 75 mls/hr IV .[id number] [facility] Rx#:[id number] Oral 240 0 Output: Urine Catheter Amount 575 500 0 Other: Meal Dinner Percent of Meal Consumed 25% Urine Appearance Clear Clear Uretheral (Proctor) Clear Urine Color Bright Yellow Bright Yellow Uretheral (Proctor) Dark Yellow Urine Odor Normal Uretheral (Proctor) Strong Stool Size Moderate Stool Color Brown Stool Consistency Soft # Bowel Movements 1 OBJ DATA Labs CBC & Chem 7: 06/17/20 05:20 06/17/20 05:20 Labs: Abnormal Lab Results 06/17/20 06/17/20 06/16/20 05:20 05:20 05:20 RBC 3.57 L Hgb 9.4 L Hct 29.8 L MCHC MPV 10.9 H Eos % (Auto) 8.6 H Eos # (Auto) Potassium Chloride Carbon Dioxide BUN 5 L Creatinine 0.5 L Glucose 167 H Phosphorus 2.3 L AST ALT Total Protein 4.8 L Albumin 2.6 L CSF RBC CSF Neutrophils CSF Glucose CSF Total Protein 06/16/20 06/16/20 06/15/20 05:20 05:20 21:20 RBC 3.90 L Hgb 10.2 L Hct 31.9 L MCHC MPV 10.9 H Eos % (Auto) 10.9 H Eos # (Auto) 0.94 H Potassium 3.1 L 3.1 L Chloride Carbon Dioxide BUN Creatinine 0.5 L Glucose 151 H Phosphorus AST 36 H ALT Total Protein 5.1 L Albumin 2.9 L CSF RBC CSF Neutrophils CSF Glucose CSF Total Protein 06/15/20 06/15/20 06/13/20 05:14 05:12 15:29 RBC 3.98 L Hgb 10.4 L Hct 34.4 L MCHC 30.2 L MPV 10.7 H Eos % (Auto) 7.6 H Eos # (Auto) Potassium 2.9 L* Chloride 111 H Carbon Dioxide 21 L BUN Creatinine 0.5 L Glucose 167 H Phosphorus AST 49 H ALT 41 H Total Protein 5.3 L Albumin 3.0 L CSF RBC 2 H CSF Neutrophils 13 H CSF Glucose 97 H CSF Total Protein 70.0 H Meds: Medications Acetaminophen (Tylenol) 325 mg IA Q6HP PRN; Protocol PRN Reason: Fever >101 Dextrose (Dextrose 50%) 0 ml IV UD PRN PRN Reason: Hypoglycemia Diagnostic Test (Pha) (Accu-Chek) 1 each FS Q6 [facility] Last Admin: 06/17/20 05:38 Dose: 1 each Documented by: Docusate Sodium (Colace) 100 mg PO BID [facility] Last Admin: 06/17/20 09:38 Dose: Not Given Documented by: Enoxaparin Sodium (Lovenox) 40 mg SQ DAILY [facility] Last Admin: 06/17/20 09:49 Dose: 40 mg Documented by: Hydralazine HCl (Apresoline) 10 mg IV Q4-6HP PRN PRN Reason: Hypertension Last Admin: 06/13/20 09:37 Dose: 10 mg Documented by: Acyclovir Sodium 700 mg/ (Sodium Chloride) 100 mls @ 100 mls/hr IV Q8H [facility] Last Infusion: 06/17/20 07:40 Dose: Infused Documented by: Acetaminophen (Ofirmev) 650 mg in 65 mls @ 130 mls/hr IV Q8HP PRN; Protocol PRN Reason: PAIN LEVEL 3-6 Last Infusion: 06/15/20 01:15 Dose: Infused Documented by: Potassium Chloride/Dextrose/Sod Cl (Dextrose 5%-1/2ns W/20meq Kcl) 1,000 mls @ 75 mls/hr IV .[id number] [facility] Last Admin: 06/17/20 00:25 Dose: 75 mls/hr Documented by: Ceftriaxone Sodium 2 gm/ (Dextrose) 50 mls @ 100 mls/hr IV DAILY@1000 [facility] Last Admin: 06/17/20 09:49 Dose: 100 mls/hr Documented by: Magnesium Sulfate (Magnesium Sulfate) 2 gm in 50 mls @ 50 mls/hr IV UD PRN PRN Reason: Mag < or = 1.7 Last Infusion: 06/16/20 16:45 Dose: Infused Documented by: Potassium Chloride 40 meq/ (Dextrose) 520 mls @ 130 mls/hr IV UD PRN PRN Reason: K+ = or < 3.5 Last Admin: 06/17/20 08:33 Dose: 130 mls/hr Documented by: Insulin Glargine (Lantus) 15 unit SQ DAILY [facility] Last Admin: 06/17/20 09:48 Dose: 15 unit Documented by: Insulin Human Lispro (Humalog) 0 unit SQ Q6 [facility]; Protocol Last Admin: 06/17/20 05:39 Dose: Not Given Documented by: Lactulose (Cephulac) 10 gm PO DAILYP PRN PRN Reason: Constipation Last Admin: 06/16/20 14:00 Dose: 10 gm Documented by: Ondansetron HCl (Zofran) 4 mg IV Q4HP PRN; Protocol PRN Reason: Nausea And Vomiting Potassium Chloride (Potassium Chloride) 20 meq PO BIDCC PRN PRN Reason: K <3.6 Sodium Chloride (Saline Flush) 10 ml IV Q8 [facility] Last Admin: 06/17/20 05:38 Dose: 10 ml Documented by: A/P Narrative A/P Narrative: * Acute change in mental status-Etiology in question. Await encephalitis panel. As per Joann (POA), she was normal on 05/28. As per SNF, her mentation has been gradually declining over the past [address] of the head no acute change, Discussed with neurology Dr. Muñoz at [facility] in [place], who suggested to do MRI with and without contrast and lumbar puncture. He also suggested to start vancomycin, ceftriaxone, ampicillin, and acyclovir. LP was performed. CSF 1 WBC. Continue acyclovir. DCd ampicillin/vancomycin 06/16. During today's family conference family contemplating on comfort care interventions. * Sepsis 2nd to UTI,improving * Complicated Proteus UTI-on Rocephin * Hypokalemia on replacement * Hypernatremia-resolved * DM type 2-on basal prandial insulin * History dementia multiinfarcts on CT * Prophylaxis Plan * Continue acyclovir/Rocephin * Await CSF studies * Aggressive electrolyte replacement * Crystalloids * Nutrition support * Family care conference for goals of care Time Spent With Patient Time: Total time spent is greater than 50% in coordination of care (as documented) at patient's floor/unit and/or counseling patient: QUALITY VTE Deep Vein Thrombosis/Pulmonary Embolism Present on Admission: No
[2020-06-17] MEDS ORDERED: hydrALAZINE 20 MG/ML VIAL IV PRN (22:33)
[2020-06-17] MEDS ORDERED: ONDANSETRON 4 MG/2 ML VIAL IV PRN (22:33)
[2020-06-17] MEDS ORDERED: LACTULOSE 20 GM/30 ML ORAL.SOL PO PRN (22:33)
[2020-06-17] MEDS ORDERED: POTASSIUM CHLORIDE 20 MEQ/15 ML ML PO PRN (22:33)
[2020-06-17] MEDS ORDERED: ACETAMINOPHEN 650 MG/65 ML BOTTLE IV PRN (22:33)
[2020-06-17] MEDS ORDERED: DEXTROSE 50% 50 ML VIAL IV PRN (22:33)
[2020-06-17] MEDS ORDERED: MAGNESIUM SULFATE 2 GM/50 ML BAG IV PRN (22:33)
[2020-06-17] MEDS ORDERED: POTASSIUM CHLORIDE 40 MEQ in DEXTROSE 5% IN WATER 500 ML IV PRN (22:33)
[2020-06-17] MEDS ORDERED: ACETAMINOPHEN 325 MG SUPP.RECT PR PRN (22:33)
[2020-06-17] MEDS ORDERED: IOPAMIDOL 100 ML BOTTLE IV ONE (22:33)
[2020-06-17] MEDS: ACETAMINOPHEN 1,000 MG/100 ML BOTTLE IV ONE ×2 (22:48→22:57)
[2020-06-18] MEDS: INSULIN LISPRO 1 UNIT/0.01 ML UNIT SQ SCH ×6 (00:20→23:50)
[2020-06-18] MEDS ORDERED: INSULIN LISPRO 1 UNIT/0.01 ML UNIT SQ ONE (00:25)
[2020-06-18] MEDS: ACYCLOVIR SODIUM IV SCH ×4 (05:23→21:40)
[2020-06-18] MEDS: SODIUM CHLORIDE 0.9% IV SCH ×4 (05:23→21:40)
[2020-06-18] MEDS: 0.9 % SODIUM CHLORIDE 10 ML SYRINGE IV SCH ×3 (06:55→21:40)
[2020-06-18] MEDS: ENOXAPARIN 40 MG/0.4 ML SYRINGE SQ SCH (08:23)
[2020-06-18] MEDS: DOCUSATE SODIUM 100 MG CAPSULE PO SCH ×2 (08:23→21:40)
[2020-06-18] MEDS: INSULIN GLARGINE, HUMAN 1 UNIT/0.01 ML SQ SCH (08:23)
[2020-06-18 09:31] LABS: ALT/SGPT 21 U/L (<40); AST/SGOT 22 U/L (<32); Albumin/Globulin Ratio 1.2 (1.0-2.3); Alkaline Phosphatase 70 U/L (39-117); Basophils # (Auto) 0.04 K/mcL (0.00-0.20); Basophils % (Auto) 0.5 % (0.0-2.0); Bilirubin,Total 0.3 mg/dL (0.1-1.0); Blood Urea Nitrogen 3 mg/dL (8-23); Calcium 10.4 mg/dL (8.6-10.4); Carbon Dioxide 23 mmol/L (22-30); Chloride 105 mmol/L (96-108); Eosinophils # (Auto) 0.58 K/mcL (0.00-0.70); Eosinophils % (Auto) 7.7 % (0.0-7.0); Globulin 2.5 gm/dL (2.2-3.7); Glomerular Filtration Rate 95; Glucose 124 mg/dL (70-105); Hematocrit 31.9 % (36.0-48.0); Hemoglobin 10.2 g/dL (12.0-15.0); Lymphocytes # (Auto) 1.83 K/mcL (1.50-4.80); Lymphocytes % (Auto) 24.1 % (15.0-49.0); Mean Cell Volume 82.6 fL (80.0-100.0); Mean Platelet Volume 11.3 fL (7.4-10.4); Monocytes % (Auto) 6.6 % (1.0-12.0); Neutrophils % (Auto) 61.1 % (38.0-78.0); Platelet Count 286 K/mcL (140-440); RBC 3.86 M/mcL (4.00-5.20); WBC 7.6 K/mcL (4.5-11.0)
[2020-06-18] MEDS ORDERED: cefTRIAXone 2 GM in DEXTROSE 5% IN WATER 50 ML IV SCH (10:00)
--- NOTE | 2020-06-18 10:50 | Internal Med Progress Note ---
SUBJECTIVE Subjective Patient information: Note initiated : 06/18/20 at 10:43 am Service Date, if different from initiated Date: [] Patient: Trevon Waller 74 y/o F admitted on 06/11/20 for decreased LOC. Chief Complaint: Ms. Waller is a 74 year old F with a past medical history of diabetes and de mentia who was sent to the ER from [facility] due to fever and decreased consciousness. Patient has not answer questions and all medical history is obtained from his chart. In the ER, urinalysis was compatible with UTI. 1 L normal saline was given. CT of the head and chest was performed and results pending. Patient is allergic to multiple antibiotics. When I saw this patient in the ER, patient could open eyes when I shook him but he did not answer any question. 06/12 Patient still does not answer questions but she can open eyes. Vital signs are stable and acceptable Patient is on room air with good oxygen saturation Blood sugar around 100 White blood cells 12.9, sodium of 152, potassium of 2.8, phosphorus 2.1 CT of the head showed Multiple old infarcts will start D5-1/2NS-20mEq KCl 75ml/hr Spoke to Joann Rasmussen ([phone]) (friend, POA), who stated that pt could answer questions and talk on 05/26. 06/13 Patient condition has not changed much. She opens eyes Bby call. When I saw this patient in the morning, she did not answer my questions. But I was reported that that she could answer a few very simple questions by yes or no. Oxygen saturation is good on room air Afebrile Blood pressure is not controlled (not on oral medication). Urine output is good White blood cells 10.9, sodium 149, AST 44, prolactin 7.7, Blood culture no growth so far Discussed with neurology Dr. Muñoz at [facility] in [place], who suggested to do MRI with and without contrast and lumbar puncture. He also suggested to start vancomycin, ceftriaxone, ampicillin, and acyclovir. 06/14 Patient mental status slightly improved. She seems to understand the questions and she is trying to answer questions. Blood pressure is not controlled. She is on IV hydralazine. Saturation is good on room air Sodium 147, potassium 3.1 Liver enzyme elevated She she underwent lumbar puncture yesterday. Results are pending She seems to tolerate her urinary coverage Will try to add ampicillin. Benadryl 25 mg once 30 minutes before ampicillin starts 06/15 Pt's mental status is slightly improving. She can answer very simple questions although she slurs her speech. vital signs are stable and acceptable. Afebrile, WBC 9.0 CSF tests still pending She is now on 4 abx. 06/16-CSF studies 1 WBC with no evidence of bacterial infection. DC ampicillin/vancomycin. Continue acyclovir. Low potassium magnesium on replacement. Remains minimally responsive. Continue Rocephin for Proteus c overage. 06/17-patient clinically status quo. Remains minimally responsive. However labs and imaging much improved. Proctor is draining clear urine. White count 8000, electrolytes stable, viral encephalitis panel pending. Case discussed with patient's family including cousin Mal, he will further discuss patient scenario with patient's POA sister. Family is considering initiation of comfort care due to persistent altered mental status change and no clinical improvement over the last 5 days. 06/18-patient slightly more lucid and respond to commands. Able to feed with assistance. No overnight fever chills. CSF cryptococcus negative. DC antibiotics today. Continue nutrition support Constitutional Vitals: Vital Signs Temp Pulse Resp BP Pulse Ox 96.7 F L 66 16 160/70 99 06/18/20 08:00 06/18/20 08:00 06/18/20 08:00 06/18/20 08:00 06/18/20 08:00 Period Temp Pulse Resp BP Sys/Marte Pulse Ox Last 24 Hr 96.7 F-98.6 F 66-85 14-22 128-179/63-115 95-100 Intake and Output 06/17/20 06/18/20 06/18/20 21:59 05:59 13:59 Intake Total 1150 568 280 Output Total 2285 1200 Balance -1138 -632 280 Weight 75.795 kg Opens eyes to verbal commands Participating in feeding Remains confused Intake & Output: Intake & Output 06/17/20 06/18/20 06/18/20 21:59 05:59 13:59 Intake Total 1150 568 280 Output Total 2285 1200 Balance -1134 -632 280 Weight 75.795 kg Intake: IV 1150 568 100 OFIRMEV 1,000 mg In 100 ml @ 0 65 mls/hr IV .[facility] Rx#: [id number] Zovirax 700 mg In Sodium 100 100 100 Chloride 0.9% 100 ml @ 100 mls/ hr IV Q8H [facility] Rx#:[id number] Dextrose 5%-1/2Ns W/20Meq KCl 1 1000 403 ,000 ml @ 75 mls/hr IV .[id number] [facility] Rx#:[id number] Rocephin 2 gm In Dextrose 5% in 50 Water 50 ml @ 100 mls/hr IV DAILY@1000 [facility] Rx#:[id number] Oral 0 180 Output: Urine Catheter Amount 2281 1200 Other: Meal Breakfast Percent of Meal Consumed 50% Feeding Ability Total Assistance Urine Appearance Clear Clear Uretheral (Proctor) Clear Clear Urine Color Bright Yellow Bright Yellow Uretheral (Proctor) Bright Yellow Straw Urine Odor Normal Normal Stool Size Small Stool Color Brown Stool Consistency Soft Formed # of times incontinent of 1 Bowels OBJ DATA Labs CBC & Chem 7: 06/18/20 05:25 06/18/20 05:25 Labs: Abnormal Lab Results 06/18/20 06/18/20 06/17/20 05:25 05:25 05:20 RBC 3.86 L Hgb 10.2 L Hct 31.9 L MPV 11.3 H Eos % (Auto) 7.7 H Eos # (Auto) Potassium Anion Gap 7.0 L BUN 3 L 5 L Creatinine 0.5 L 0.5 L Glucose 124 H 167 H Phosphorus AST Total Protein 5.5 L 4.8 L Albumin 3.0 L 2.6 L CSF RBC CSF Neutrophils CSF Glucose CSF Total Protein 06/17/20 06/16/20 06/16/20 05:20 05:20 05:20 RBC 3.57 L Hgb 9.4 L Hct 29.8 L MPV 10.9 H Eos % (Auto) 8.6 H Eos # (Auto) Potassium 3.1 L Anion Gap BUN Creatinine 0.5 L Glucose 151 H Phosphorus 2.3 L AST 36 H Total Protein 5.1 L Albumin 2.9 L CSF RBC CSF Neutrophils CSF Glucose CSF Total Protein 06/16/20 06/15/20 06/13/20 05:20 21:20 15:29 RBC 3.90 L Hgb 10.2 L Hct 31.9 L MPV 10.9 H Eos % (Auto) 10.9 H Eos # (Auto) 0.94 H Potassium 3.1 L Anion Gap BUN Creatinine Glucose Phosphorus AST Total Protein Albumin CSF RBC 2 H CSF Neutrophils 13 H CSF Glucose 97 H CSF Total Protein 70.0 H Meds: Medications Acetaminophen (Tylenol) 325 mg IL Q6HP PRN; Protocol PRN Reason: Fever >101 Dextrose (Dextrose 50%) 0 ml IV UD PRN PRN Reason: Hypoglycemia Diagnostic Test (Pha) (Accu-Chek) 1 each FS Q6 [facility] Last Admin: 06/18/20 05:32 Dose: 1 each Documented by: Docusate Sodium (Colace) 100 mg PO BID [facility] Last Admin: 06/18/20 08:23 Dose: 100 mg Documented by: Enoxaparin Sodium (Lovenox) 40 mg SQ DAILY [facility] Last Admin: 06/18/20 08:23 Dose: 40 mg Documented by: Hydralazine HCl (Apresoline) 10 mg IV Q4-6HP PRN PRN Reason: Hypertension Acetaminophen (Ofirmev) 650 mg in 65 mls @ 130 mls/hr IV Q8HP PRN; Protocol PRN Reason: PAIN LEVEL 3-6 Acyclovir Sodium 700 mg/ (Sodium Chloride) 100 mls @ 100 mls/hr IV Q8H [facility] Last Infusion: 06/18/20 08:59 Dose: Infused Documented by: Ceftriaxone Sodium 2 gm/ (Dextrose) 50 mls @ 100 mls/hr IV DAILY@1000 [facility] Last Admin: 06/18/20 10:15 Dose: 100 mls/hr Documented by: Magnesium Sulfate (Magnesium Sulfate) 2 gm in 50 mls @ 50 mls/hr IV UD PRN PRN Reason: Mag < or = 1.7 Potassium Chloride 40 meq/ (Dextrose) 520 mls @ 130 mls/hr IV UD PRN PRN Reason: K+ = or < 3.5 Insulin Glargine (Lantus) 15 unit SQ DAILY [facility] Last Admin: 06/18/20 08:23 Dose: 15 units Documented by: Insulin Human Lispro (Humalog) 0 unit SQ Q6 [facility]; Protocol Last Admin: 06/18/20 05:32 Dose: Not Given Documented by: Lactulose (Cephulac) 10 gm PO DAILYP PRN PRN Reason: Constipation Ondansetron HCl (Zofran) 4 mg IV Q4HP PRN; Protocol PRN Reason: Nausea And Vomiting Potassium Chloride (Potassium Chloride) 20 meq PO BIDCC PRN PRN Reason: K <3.6 Sodium Chloride (Saline Flush) 10 ml IV Q8 [facility] Last Admin: 06/18/20 06:55 Dose: Not Given Documented by: A/P Narrative A/P Narrative: * Acute change in mental status-likely multifactorial in the setting of UTI/await encephalitis panel. Extended family conference undertaken with AMANIssac Joann on 06/17. If patient fails to improve over the next 24 hours we would want Elva to transition to comfort care. As per SNF, her mentation has been gradually declining over the past 2 weeks[address] of the head no acute change, Discussed with neurology Dr. Muñoz at [facility] in [place], who suggested to do MRI with and without contrast and lumbar puncture. He also suggested to start vancomycin, ceftriaxone, ampicillin, and acyclovir. LP was performed. CSF 1 WBC. Continue acyclovir. Antibiotics were continued until CSF negative for bacterial infection. * Sepsis 2nd to UTI, resolved * Complicated Proteus UTI-on Rocephin * Hypokalemia resolved with replacement * Hypernatremia-resolved * DM type 2-on basal prandial insulin * History dementia multiinfarcts on CT * Prophylaxis Plan * DC Rocephin * Await CSF encephalitis panel * Continue IV hydration/nutrition support * Likely transition to hospice if fails to improve over the next 24 to 48 hours Time Spent With Patient Time: Total time spent is greater than 50% in coordination of care (as documented) at patient's floor/unit and/or counseling patient: QUALITY VTE Deep Vein Thrombosis/Pulmonary Embolism Present on Admission: No
[2020-06-19] MEDS: 0.9 % SODIUM CHLORIDE 10 ML SYRINGE IV SCH (06:00)
[2020-06-19] MEDS: SODIUM CHLORIDE 0.9% IV SCH ×3 (06:03→07:15)
[2020-06-19] MEDS: ACYCLOVIR SODIUM IV SCH ×3 (06:03→07:15)
[2020-06-19] MEDS: INSULIN LISPRO 1 UNIT/0.01 ML UNIT SQ SCH ×2 (06:07→12:23)
[2020-06-19] MEDS: INSULIN GLARGINE, HUMAN 1 UNIT/0.01 ML SQ SCH (09:22)
[2020-06-19] MEDS: ENOXAPARIN 40 MG/0.4 ML SYRINGE SQ SCH (09:22)
[2020-06-19] MEDS: DOCUSATE SODIUM 100 MG CAPSULE PO SCH (09:22)
--- NOTE | 2020-06-19 10:55 | Discharge Summary ---
Discharge Provider Provider Patient information: Note initiated : 06/19/20 at 10:50 am Service Date, if different from initiated Date: [] Patient: Trevon Waller a 74 y/o F admitted on 06/11/20 for decreased LOC. Discharge diagnosis * Acute change in mental status- multifactorial in the setting of UTI/possible encephalitis. Extended family conference with FLIP David on 06/17. Family decided for transition to hospice/comfort care after patient clearly failed treatment during the 7-day hospitalization. Moreover patient has had a progressive decline in overall quality of life. Patient has completed antibiotic course. Antivirals are being discontinued. Transition to hospice , GCS 7 * Complicated Proteus UTI-completed 7-day Rocephin * DM type 2-managed on basal prandial insulin during hospitalization * History dementia multiinfarcts on CT. currently GCS 7 Brief hospital course Ms. Waller is a 74 year old F with a past medical history of diabetes and dementia who was sent to the ER from [facility] due to fever and decreased consciousness. Patient has not answer questions and all medical history is obtained from his chart. In the ER, urinalysis was compatible with UTI. 1 L normal saline was given. CT of the head and chest was performed and results pending. Patient is allergic to multiple antibiotics. When I saw this patient in the ER, patient could open eyes when I shook him but he did not answer any question. 06/12 Patient still does not answer questions but she can open eyes. 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 06/13 Patient condition has not changed much. She opens eyes Bby call. When I saw this patient in the morning, she did not answer my questions. But I was reported that that she could answer a few very simple questions by yes or no. Oxygen saturation is good on room air Afebrile Blood pressure is not controlled (not on oral medication). Urine output is good White blood cells 10.9, sodium 149, AST 44, prolactin 7.7, Blood culture no growth so far Discussed with neurology Dr. Muñoz at [facility] in [place], who suggested to do MRI with and without contrast and lumbar puncture. He also suggested to start vancomycin, ceftriaxone, ampicillin, and acyclovir. 06/14 Patient mental status slightly improved. She seems to understand the questions and she is trying to answer questions. Blood pressure is not controlled. She is on IV hydralazine. Saturation is good on room air Sodium 147, potassium 3.1 Liver enzyme elevated She she underwent lumbar puncture yesterday. Results are pending She seems to tolerate her urinary coverage Will try to add ampicillin. Benadryl 25 mg once 30 minutes before ampicillin starts 06/15 Pt's mental status is slightly improving. She can answer very simple questions although she slurs her speech. vital signs are stable and acceptable. Afebrile, WBC 9.0 CSF tests still pending She is now on 4 abx. 06/16-CSF studies 1 WBC with no evidence of bacterial infection. DC ampicillin/vancomycin. Continue acyclovir. Low potassium magnesium on replacement. Remains minimally responsive. Continue Rocephin for Proteus coverage. 06/17-patient clinically status quo. Remains minimally responsive. However labs and imaging much improved. Proctor is draining clear urine. White count 8000, electrolytes stable, viral encephalitis panel pending. Case discussed with patient's family including cousin Mal, he will further discuss patient scenario with patient's POA sister. Family is considering initiation of comfort care due to persistent altered mental status change and no clinical improvement over the last 5 days. 06/18-patient slightly more lucid and respond to commands. Able to feed with assistance. No overnight fever chills. CSF cryptococcus negative. DC antibiotics today. Continue nutrition support 06/19-patient remains status quo with minimal responsive unable to eat or drink. Continues to deteriorate. Per family transitioning to hospice/comfort care and discharging to [facility]. Continue all treatment/diet therapies and activities directed towards comfort Date of admission: 06/11/20 23:56 Discharge date: 06/19/20 Primary care physician: Jak Justin Consults: 06/12/20 07:55 Consult to Physician [CONS] Routine Comment: Consulting Provider: Antione Kulkarni Reason For Exam: Physician to Consult Discharge Meds Discharge Medications Home Medications aspirin [Olman Chewable Aspirin] 81 mg PO DAILY 08/23/16 [History Confirmed 06/11/20 Last Taken Unknown] acetaminophen 1,000 mg PO Q6-12HP PRN 06/11/20 [History Confirmed 06/11/20 Last Taken Unknown] bisacodyl 5 mg PO PRN PRN 06/11/20 [History Confirmed 06/11/20 Last Taken Unknown] bisacodyl 10 mg GA PRN PRN 06/11/20 [History Confirmed 06/11/20 Last Taken Unknown] cetirizine 5 mg PO QDAY PRN 06/11/20 [History Confirmed 06/11/20 Last Taken Unknown] cholecalciferol (vitamin D3) 1,250 mcg PO DAILY 06/11/20 [History Confirmed 06/11/20 Last Taken Unknown] cyanocobalamin (vitamin B-12) 2,500 mcg PO QDAY 06/11/20 [History Confirmed 06/11/20 Last Taken Unknown] diclofenac sodium 1 % TOPICAL DAILY 06/11/20 [History Confirmed 06/11/20 Last Taken Unknown] donepezil 10 mg PO DAILY 06/11/20 [History Confirmed 06/11/20 Last Taken Unk nown] famotidine 20 mg PO DAILY 06/11/20 [History Confirmed 06/11/20 Last Taken Unknown] fenofibrate nanocrystallized 145 mg PO DAILY 06/11/20 [History Confirmed 06/11/20 Last Taken Unknown] insulin glargine 17 unit SUBCUT BID 06/11/20 [History Confirmed 06/11/20 Last Taken Unknown] tramadol 50 mg PO TID PRN 06/11/20 [History Confirmed 06/11/20 Last Taken Unknown] lorazepam [Lorazepam Intensol] 0.5 mg PO Q6HP PRN #15 ml 06/19/20 [Rx Last Taken Unknown] morphine concentrate 5 mg PO Q6HP PRN #10 ml 06/19/20 [Rx Last Taken Unknown] ondansetron 4 mg PO Q4-6HP PRN #10 tab 06/19/20 [Rx Last Taken Unknown] COURSE Hospital Course Hospital course: . Discharge diagnosis: . Time Spent with Patient Time attestation: Total time spent providing and/or coordinating discharge services: EXAM Constitutional Vitals: Temp Pulse Resp BP Pulse Ox 98.4 F 85 20 147/72 95 06/19/20 08:00 06/19/20 08:00 06/19/20 08:00 06/19/20 08:00 06/19/20 08:00 Discharge Data Data Completed and Pending Labs on day of discharge: Labs from last 24 hours 06/13/20 15:27 CSF VDRL Non-reactive Discharge Plan Patient/Caregiver Discharge Instructions Activity: other Diet: Dysphagia Level 4 Pureed Foods Activity Restrictions/Additional Instructions: Continue diet/therapies/treatments/activities and medications directed towards comfort only Use pain, anxiety and nausea medications only as needed for management of symptoms During the current hospitalization patient mental status has not changed despite aggressive treatment including aggressive treatment of infection/biochemical abnormalities/possible encephalitis. If patient shows improvement over time she may be started back on her pre-existing medications for chronic issues. The transition to comfort care was directed by FLIP David, her decision was based on patient's failing to improve despite 8 days hospitalization and aggressive treatments and patient's prior wishes. For any and all questions related to patient's goals of care please contact FLIP Prescriptions: New morphine concentrate 100 mg/5 mL (20 mg/mL) Solution 5 mg PO Q6HP PRN (Reason: Pain) Qty: 10 RF: 0 ondansetron 4 mg Tablet,Disintegrating 4 mg PO Q4-6HP PRN (Reason: Nausea/Vomiting) Qty: 10 RF: 0 lorazepam [Lorazepam Intensol] 2 MG/ML concentrate 0.5 mg PO Q6HP PRN (Reason: Anxiety) Qty: 15 RF: 0 Continued donepezil 10 mg tablet 10 mg PO DAILY RF: 0 tramadol 50 mg Tablet 50 mg PO TID PRN (Reason: Pain) RF: 0 famotidine 20 mg Tablet 20 mg PO DAILY RF: 0 bisacodyl 10 mg Suppository 10 mg GA PRN PRN (Reason: Constipation) RF: 0 bisacodyl 5 mg Tablet,Delayed Release (Dr/Ec) 5 mg PO PRN PRN (Reason: Constipation) RF: 0 No Action aspirin [Olman Chewable Aspirin] 81 MG tablet,chewable 81 mg PO DAILY RF: 0 insulin glargine 100 unit/mL Solution 17 unit SUBCUT BID RF: 0 cetirizine 10 mg Tablet 5 mg PO QDAY PRN (Reason: allergies) RF: 0 acetaminophen 500 mg Tablet 1,000 mg PO Q6-12HP PRN (Reason: Pain) RF: 0 fenofibrate nanocrystallized 145 mg tablet 145 mg PO DAILY RF: 0 cholecalciferol (vitamin D3) 1,250 mcg (50,000 unit) Capsule 1,250 mcg PO DAILY RF: 0 diclofenac sodium 1 % gel 1 % TOPICAL DAILY RF: 0 cyanocobalamin (vitamin B-12) 2,500 mcg Tablet 2,500 mcg PO QDAY RF: 0 Follow Up Plan Follow up with: Jak Justin MD [Primary Care Provider] - Patient Disposition: Hospice - Medical Facility Rehab Potential: Serious I certify that the patient requires SNF services: Yes Overall status at discharge: patient is not back to baseline Discharge Orders: Discharge Order (Routine); Ordered 06/19/20 Ordered By: Jake BANKS VTE Deep Vein Thrombosis/Pulmonary Embolism Present on Admission: No
[2020-06-22 13:21] LABS: HSV 1 IGG Index CSF <0.01; HSV 1 IGM Screen CSF NEGATIVE; HSV 2 IBM Screen CSF NEGATIVE; HSV 2 IGG Index CSF <0.01; Interpretation ANTIBODY DETECTED; LCM IGG <1:1; LCM IGM <1:1; Measles IGG AB CSF <1:64; Measles IGM AB CSF <1:1; VZV IGM (IFA) <1:1 titer; VZV Total AB (ACIF) <1:2 titer; WNV IGG Screen <1.30 index; WNV IGM Screen <0.90 index
[2020-06-22 13:41] LABS: B. Burgdorferi IGG AB CSF NO BANDS DETECTED; B. Burgdorferi IGM AB CSF NO BANDS DETECTED
== END 2020-06-19 13:20 | disposition hospice, inpatient (51) | DRG 871 ==
LOC: ED 20:08 → ICU 23:56 → MEDSUR 06-17 22:23
PROVIDERS: ADMIT Internal Medicine; ATTEND Internal Medicine